=== PATIENT | female | born 1945 | race African-American/Black ===

== ENCOUNTER 2021-01-31 18:10 | Inpatient (IN) ==
[2021-01-31 18:48] LABS: Basophils % 0.2 % (0.0-0.8); Eosinophils # 0.4 10*3/uL (0.0-0.87); Eosinophils % 2.1 % (0.00-10.9); Hematocrit 37.7 VOL% (35.7-47.0); Hemoglobin 11.9 GM/DL (12.0-16.0); Immature Granulocytes % 0.4 %; Immature Granulocytes Absolute 0.06 #; Lymphocytes # 3.3 10*3/uL (1.4-4.0); Lymphocytes % 19.4 % (21.3-54.2); Mean Corpuscular HGB Conc 31.6 GM/DL (32-36); Mean Corpuscular Volume 88.9 FL (87-102); Mean Platelet Volume 10.8 FL (9.6-12.0); Monocytes % 7.5 % (1.7-12.7); Neutrophils % 70.4 % (38.7-73.9); Platelet Count 170 T/CUMM (130-400); Red Blood Count 4.24 MC/CUMM (3.8-5.5); Red Cell Distribution Width 17.6 % (9.3-17.3); White Blood Count 16.8 T/CUMM (4-12)
[2021-01-31 19:04] LABS: Albumin 3.3 G/DL (3.4-5.0); Bilirubin,Total 0.4 MG/DL (0.2-1.0); Calcium 8.9 MG/DL (8.5-10.1); Osmolality,Calculated 282.3 MOS/KG (273-304); Potassium 4.5 MMOL/L (3.5-5.1)
[2021-01-31] MEDS ORDERED: ASPIRIN 325 MG TABLET PO STA (19:55)
[2021-01-31] MEDS ORDERED: ACETAMINOPHEN 325 MG TABLET PO ONE (19:55)
[2021-01-31 20:11] LABS: Bacteria,Urine Occasional /HPF (Few); Bilirubin,Urine Negative (Negative); Blood, Urine Negative (Negative); Glucose,Urine (UA) 150 mg/dL (Negative); Hyaline Casts,Urine 1 /LPF (0-3); Ketones,Urine Negative (Negative); Nitrite,Urine Negative (Negative); Protein,Urine Negative; Squamous Epithelial Cell,Urine Occasional /HPF (0-10); Urine Appearance CLEAR (Clear); Urine Color Yellow (Yellow); Urine Urobilinogen < 2.0 EU/DL (0.2-1.0)
[2021-01-31] MEDS ORDERED: PIPERACILLIN/TAZOBACTAM 3,375 MG in SODIUM CHLORIDE 0.9% 100 ML IV STA (20:42)
[2021-01-31] MEDS ORDERED: VANCOMYCIN INJ 1,000 MG in SODIUM CHLORIDE 0.9% 250 ML IV STA (20:42)
[2021-01-31] MEDS ORDERED: hydrALAZINE 20 MG/1 ML VIAL IV PRN (21:15)
[2021-01-31] MEDS ORDERED: ONDANSETRON 4 MG/2 ML VIAL IV PRN (21:15)
[2021-01-31] MEDS ORDERED: diphenhydrAMINE CAP 25 MG CAPSULE PO PRN (21:15)
[2021-01-31] MEDS ORDERED: GLUCAGON 1 MG VIAL IM PRN ×2 (21:15)
[2021-01-31] MEDS ORDERED: ZALEPLON 5 MG CAPSULE PO PRN (21:15)
[2021-01-31] MEDS ORDERED: DOCUSATE SODIUM 100 MG CAPSULE PO PRN (21:15)
[2021-01-31] MEDS ORDERED: guaiFENesin/DM ER 600-30 MG TABLET PO PRN (21:15)
[2021-01-31] MEDS ORDERED: NICOTINE 21 MG/24 HR PATCH TRANSDERM PRN (21:15)
[2021-01-31] MEDS ORDERED: MORPHINE 4 MG/1 ML VIAL IV PRN (21:15)
[2021-01-31] MEDS ORDERED: DEXTROSE 50% 25 GM/50 ML VIAL IV PRN (21:15)
[2021-01-31] MEDS: SODIUM CHLORIDE 0.9% 1,000 ML IV SCH (23:49)
[2021-02-01] MEDS: ALBUTEROL/IPRATROPIUM 3 ML NEB RESP TX SCH ×4 (02:00→18:56)
[2021-02-01] MEDS: ACETAMINOPHEN 325 MG TABLET PO PRN ×3 (03:26→20:13)
[2021-02-01 05:18] LABS: Basophils % 0.2 % (0.0-0.8); Eosinophils # 0.2 10*3/uL (0.0-0.87); Eosinophils % 1.5 % (0.00-10.9); Hematocrit 31.8 VOL% (35.7-47.0); Hemoglobin 10.3 GM/DL (12.0-16.0); Immature Granulocytes % 0.5 %; Immature Granulocytes Absolute 0.05 #; Lymphocytes # 1.7 10*3/uL (1.4-4.0); Lymphocytes % 15.8 % (21.3-54.2); Mean Corpuscular HGB Conc 32.4 GM/DL (32-36); Mean Corpuscular Volume 88.3 FL (87-102); Monocytes % 7.8 % (1.7-12.7); Neutrophils % 74.2 % (38.7-73.9); Platelet Count 144 T/CUMM (130-400); Red Cell Distribution Width 17.6 % (9.3-17.3); White Blood Count 10.8 T/CUMM (4-12)
[2021-02-01 05:35] LABS: Calcium 8.5 MG/DL (8.5-10.1); Potassium 3.9 MMOL/L (3.5-5.1)
[2021-02-01] MEDS: DEXTROSE 50% 25 GM/50 ML VIAL IV PRN (05:58)
[2021-02-01] MEDS ORDERED: MAGNESIUM SULF RIDER 2 GM/50 ML PREMIX IV PRN (07:20)
[2021-02-01] MEDS ORDERED: MAGNESIUM SULF RIDER 4 GM/100 ML PREMIX IV PRN (07:20)
[2021-02-01] MEDS ORDERED: PANTOPRAZOLE 40 MG TABLET PO SCH (09:00)
[2021-02-01] MEDS: INSULIN LISPRO 100 UNIT/ML SUBCUT SCH ×4 (09:01→20:14)
[2021-02-01] MEDS: ATORVASTATIN 80 MG TABLET PO SCH (10:00)
[2021-02-01] MEDS: busPIRone 5 MG TABLET PO SCH ×2 (10:00→20:13)
[2021-02-01] MEDS: NEBIVOLOL 10 MG TABLET PO SCH (10:00)
[2021-02-01] MEDS: CETIRIZINE 10 MG TABLET PO SCH (10:00)
[2021-02-01] MEDS: ENOXAPARIN 40 MG/0.4 ML SYRINGE SUBCUT SCH (10:08)
[2021-02-01] MEDS: PIPERACILLIN/TAZOBACTAM 3,375 MG in SODIUM CHLORIDE 0.9% 100 ML IV SCH ×2 (10:08→17:17)
[2021-02-01] MEDS: SODIUM CHLORIDE 0.9% 1,000 ML IV SCH (16:46)
[2021-02-01] MEDS: FAMOTIDINE 20 MG TABLET PO SCH (20:13)
[2021-02-01] MEDS: TAMSULOSIN 0.4 MG CAPSULE PO SCH (20:13)
[2021-02-01] MEDS ORDERED: INSULIN GLARGINE 100 UNIT/ML SUBCUT SCH (21:00)
[2021-02-02] MEDS: PIPERACILLIN/TAZOBACTAM 3,375 MG in SODIUM CHLORIDE 0.9% 100 ML IV SCH ×3 (00:03→16:20)
[2021-02-02] MEDS: ALBUTEROL/IPRATROPIUM 3 ML NEB RESP TX SCH ×4 (00:53→19:07)
[2021-02-02 04:52] LABS: Basophils % 0.4 % (0.0-0.8); Eosinophils # 0.2 10*3/uL (0.0-0.87); Eosinophils % 2.6 % (0.00-10.9); Hematocrit 31.2 VOL% (35.7-47.0); Hemoglobin 9.9 GM/DL (12.0-16.0); Immature Granulocytes % 0.3 %; Immature Granulocytes Absolute 0.02 #; Lymphocytes # 1.9 10*3/uL (1.4-4.0); Lymphocytes % 23.8 % (21.3-54.2); Mean Corpuscular HGB Conc 31.7 GM/DL (32-36); Mean Corpuscular Volume 89.1 FL (87-102); Mean Platelet Volume 11.6 FL (9.6-12.0); Monocytes % 9.7 % (1.7-12.7); Neutrophils % 63.2 % (38.7-73.9); Platelet Count 134 T/CUMM (130-400); Red Cell Distribution Width 17.8 % (9.3-17.3); White Blood Count 7.9 T/CUMM (4-12)
[2021-02-02 05:07] LABS: Calcium 8.5 MG/DL (8.5-10.1); Osmolality,Calculated 287.7 MOS/KG (273-304); Potassium 4.6 MMOL/L (3.5-5.1)
[2021-02-02 05:09] LABS: Hypochromasia 1+; Microcytosis 1+; Platelet Estimate Normal
[2021-02-02] MEDS: ENOXAPARIN 40 MG/0.4 ML SYRINGE SUBCUT SCH (08:32)
[2021-02-02] MEDS: NEBIVOLOL 10 MG TABLET PO SCH (08:32)
[2021-02-02] MEDS: CETIRIZINE 10 MG TABLET PO SCH (08:33)
[2021-02-02] MEDS: busPIRone 5 MG TABLET PO SCH ×2 (08:33→21:34)
[2021-02-02] MEDS: INSULIN LISPRO 100 UNIT/ML SUBCUT SCH ×4 (08:33→21:37)
[2021-02-02] MEDS: FAMOTIDINE 20 MG TABLET PO SCH ×2 (08:33→21:34)
[2021-02-02] MEDS: ATORVASTATIN 80 MG TABLET PO SCH (08:33)
[2021-02-02 10:45] LABS: % Iron Saturation 10.6 % (18-50)
[2021-02-02 16:17] LABS: Folate 12.72 NG/ML (5.38-24.0)
[2021-02-02] MEDS: TAMSULOSIN 0.4 MG CAPSULE PO SCH (21:34)
[2021-02-03] MEDS: ALBUTEROL/IPRATROPIUM 3 ML NEB RESP TX SCH ×4 (00:41→19:36)
[2021-02-03] MEDS: PIPERACILLIN/TAZOBACTAM 3,375 MG in SODIUM CHLORIDE 0.9% 100 ML IV SCH ×3 (01:15→17:11)
[2021-02-03 04:42] LABS: Basophils % 0.3 % (0.0-0.8); Eosinophils # 0.2 10*3/uL (0.0-0.87); Eosinophils % 3.8 % (0.00-10.9); Hematocrit 28.3 VOL% (35.7-47.0); Hemoglobin 9.2 GM/DL (12.0-16.0); Immature Granulocytes % 0.5 %; Immature Granulocytes Absolute 0.03 #; Lymphocytes # 1.8 10*3/uL (1.4-4.0); Lymphocytes % 29.4 % (21.3-54.2); Mean Corpuscular HGB Conc 32.5 GM/DL (32-36); Mean Corpuscular Volume 87.1 FL (87-102); Mean Platelet Volume 10.9 FL (9.6-12.0); Monocytes % 11.6 % (1.7-12.7); Neutrophils % 54.4 % (38.7-73.9); Platelet Count 121 T/CUMM (130-400); Red Blood Count 3.25 MC/CUMM (3.8-5.5); Red Cell Distribution Width 17.6 % (9.3-17.3); White Blood Count 6.1 T/CUMM (4-12)
[2021-02-03 04:49] LABS: PT Patient Result 10.8 SECS (10.5-12.0); Partial Thromboplastin Time 28.3 SECS (23.9-33.8)
[2021-02-03] MEDS ORDERED: BENZONATATE 100 MG CAPSULE PO ONE (08:30)
[2021-02-03] MEDS ORDERED: diphenhydrAMINE 50 MG/1 ML VIAL IM ONE (08:30)
[2021-02-03] MEDS: INSULIN LISPRO 100 UNIT/ML SUBCUT SCH ×4 (08:59→22:38)
[2021-02-03] MEDS ORDERED: LIDOCAINE 2% 20 ML VIAL RESP TX ONE (09:00)
[2021-02-03] MEDS ORDERED: LIDOCAINE 1% 20 ML VIAL MISC INJ ONE (09:00)
[2021-02-03] MEDS ORDERED: LIDOCAINE 2% VISCOUS 100 ML BOTTLE SWISH/SPIT ONE (09:00)
[2021-02-03] MEDS: busPIRone 5 MG TABLET PO SCH ×2 (09:01→21:38)
[2021-02-03] MEDS: FAMOTIDINE 20 MG TABLET PO SCH ×2 (09:01→21:38)
[2021-02-03] MEDS: CETIRIZINE 10 MG TABLET PO SCH (09:01)
[2021-02-03] MEDS: ATORVASTATIN 80 MG TABLET PO SCH (09:01)
[2021-02-03] MEDS: NEBIVOLOL 10 MG TABLET PO SCH (09:20)
[2021-02-03] MEDS: DEXTROSE 50% 25 GM/50 ML VIAL IV PRN (19:23)
[2021-02-03] MEDS: FERROUS SULFATE 325 MG TABLET PO SCH (21:38)
[2021-02-03] MEDS: TAMSULOSIN 0.4 MG CAPSULE PO SCH (21:38)
[2021-02-04] MEDS: ALBUTEROL/IPRATROPIUM 3 ML NEB RESP TX SCH ×3 (00:24→13:45)
[2021-02-04] MEDS: PIPERACILLIN/TAZOBACTAM 3,375 MG in SODIUM CHLORIDE 0.9% 100 ML IV SCH ×2 (00:38→10:26)
[2021-02-04 04:40] LABS: Basophils % 0.4 % (0.0-0.8); Eosinophils # 0.2 10*3/uL (0.0-0.87); Eosinophils % 4.2 % (0.00-10.9); Hematocrit 27.5 VOL% (35.7-47.0); Hemoglobin 9.1 GM/DL (12.0-16.0); Immature Granulocytes % 0.4 %; Immature Granulocytes Absolute 0.02 #; Lymphocytes # 1.7 10*3/uL (1.4-4.0); Lymphocytes % 31.7 % (21.3-54.2); Mean Corpuscular HGB Conc 33.1 GM/DL (32-36); Mean Platelet Volume 10.3 FL (9.6-12.0); Monocytes % 12.5 % (1.7-12.7); Neutrophils % 50.8 % (38.7-73.9); Platelet Count 121 T/CUMM (130-400); Red Blood Count 3.16 MC/CUMM (3.8-5.5); Red Cell Distribution Width 17.5 % (9.3-17.3); White Blood Count 5.3 T/CUMM (4-12)
[2021-02-04 05:07] LABS: Calcium 8.5 MG/DL (8.5-10.1); Potassium 4.3 MMOL/L (3.5-5.1)
[2021-02-04] MEDS: INSULIN LISPRO 100 UNIT/ML SUBCUT SCH ×2 (08:47→14:26)
[2021-02-04] MEDS: ENOXAPARIN 40 MG/0.4 ML SYRINGE SUBCUT SCH (10:27)
[2021-02-04] MEDS: busPIRone 5 MG TABLET PO SCH (10:28)
[2021-02-04] MEDS: FAMOTIDINE 20 MG TABLET PO SCH (10:30)
[2021-02-04] MEDS: NEBIVOLOL 10 MG TABLET PO SCH (10:30)
[2021-02-04] MEDS: CETIRIZINE 10 MG TABLET PO SCH (10:30)
[2021-02-04] MEDS: FERROUS SULFATE 325 MG TABLET PO SCH (10:30)
[2021-02-04] MEDS: ATORVASTATIN 80 MG TABLET PO SCH (10:30)
[2021-02-04 12:34] VITALS: BP 150/73
== END 2021-02-04 15:20 | disposition home or self-care (01) | DRG 178 ==
LOC: N.ED 18:10 → N.EDINP 18:10 → SUATTDRO 21:15 → N.TELEN 21:44
PROVIDERS: ADMIT Internal Medicine; ATTEND Internal Medicine

== ENCOUNTER 2021-02-17 10:29 | Inpatient (IN) ==
[2021-02-17 12:47] LABS: Basophils % 0.4 % (0.0-0.8); Eosinophils # 0.1 10*3/uL (0.0-0.87); Eosinophils % 1.1 % (0.00-10.9); Hematocrit 35.5 VOL% (35.7-47.0); Hemoglobin 11.6 GM/DL (12.0-16.0); Immature Granulocytes % 0.4 %; Immature Granulocytes Absolute 0.04 #; Lymphocytes # 1.2 10*3/uL (1.4-4.0); Lymphocytes % 10.8 % (21.3-54.2); Mean Corpuscular HGB Conc 32.7 GM/DL (32-36); Mean Corpuscular Volume 88.1 FL (87-102); Mean Platelet Volume 10.9 FL (9.6-12.0); Monocytes % 11.1 % (1.7-12.7); Neutrophils % 76.2 % (38.7-73.9); Platelet Count 247 T/CUMM (130-400); Red Blood Count 4.03 MC/CUMM (3.8-5.5); White Blood Count 11.3 T/CUMM (4-12)
[2021-02-17 13:09] LABS: Albumin 3.2 G/DL (3.4-5.0); Bilirubin,Total 0.5 MG/DL (0.20-1.00); Calcium 9.6 MG/DL (8.5-10.1); Osmolality,Calculated 285.3 MOS/KG (273-304); Potassium 4.7 MMOL/L (3.5-5.1); Total Protein 7.6 G/DL (6.4-8.2)
[2021-02-17] MEDS ORDERED: AZITHROMYCIN 250 MG TABLET PO STA (15:12)
[2021-02-17] MEDS ORDERED: cefTRIAXone 1,000 MG in SODIUM CHLORIDE 0.9% 100 ML IV STA (15:12)
[2021-02-17] MEDS ORDERED: GLUCAGON 1 MG VIAL IM PRN (15:34)
[2021-02-17] MEDS ORDERED: DEXTROSE 50% 25 GM/50 ML VIAL IV PRN ×2 (15:34)
[2021-02-17] MEDS ORDERED: ZALEPLON 5 MG CAPSULE PO PRN (15:34)
[2021-02-17] MEDS ORDERED: ALBUTEROL/IPRATROPIUM 3 ML NEB RESP TX PRN (15:38)
[2021-02-17] MEDS ORDERED: MELATONIN 3 MG TABLET PO PRN (16:08)
[2021-02-17] MEDS ORDERED: MIRTAZAPINE 15 MG TABLET PO PRN (16:08)
[2021-02-17] MEDS: ENOXAPARIN 40 MG/0.4 ML SYRINGE SUBCUT SCH (16:41)
[2021-02-17] MEDS: INSULIN REGULAR 100 UNIT/ML SUBCUT SCH ×2 (17:23→21:27)
[2021-02-17] MEDS: ACETAMINOPHEN 325 MG TABLET PO PRN (18:25)
[2021-02-17] MEDS: PIPERACILLIN/TAZOBACTAM 3,375 MG in SODIUM CHLORIDE 0.9% 100 ML IV SCH (20:09)
[2021-02-17] MEDS: CETIRIZINE 10 MG TABLET PO SCH (20:11)
[2021-02-17] MEDS: FERROUS SULFATE 325 MG TABLET PO SCH (20:11)
[2021-02-17] MEDS: busPIRone 5 MG TABLET PO SCH (20:11)
[2021-02-17] MEDS ORDERED: ESOMEPRAZOLE 40 MG PO SCH (21:00)
[2021-02-18 02:13] LABS: Basophils % 0.2 % (0.0-0.8); Eosinophils # 0.2 10*3/uL (0.0-0.87); Eosinophils % 1.9 % (0.00-10.9); Hematocrit 32.1 VOL% (35.7-47.0); Hemoglobin 10.6 GM/DL (12.0-16.0); Immature Granulocytes % 0.3 %; Immature Granulocytes Absolute 0.04 #; Lymphocytes # 2.8 10*3/uL (1.4-4.0); Lymphocytes % 22.6 % (21.3-54.2); Mean Corpuscular Volume 86.5 FL (87-102); Mean Platelet Volume 10.7 FL (9.6-12.0); Monocytes % 9.1 % (1.7-12.7); Neutrophils % 65.9 % (38.7-73.9); Platelet Count 215 T/CUMM (130-400); Red Blood Count 3.71 MC/CUMM (3.8-5.5); White Blood Count 12.3 T/CUMM (4-12)
[2021-02-18 02:33] LABS: Albumin 2.6 G/DL (3.4-5.0); Bilirubin,Total 0.8 MG/DL (0.20-1.00); Calcium 9.5 MG/DL (8.5-10.1); Osmolality,Calculated 282.3 MOS/KG (273-304); Potassium 4.1 MMOL/L (3.5-5.1); Total Protein 6.7 G/DL (6.4-8.2)
[2021-02-18] MEDS: PIPERACILLIN/TAZOBACTAM 3,375 MG in SODIUM CHLORIDE 0.9% 100 ML IV SCH ×3 (04:15→20:51)
[2021-02-18] MEDS: ONDANSETRON 4 MG/2 ML VIAL IV PRN (06:00)
[2021-02-18] MEDS: INSULIN REGULAR 100 UNIT/ML SUBCUT SCH ×4 (08:11→20:40)
[2021-02-18] MEDS: ATORVASTATIN 80 MG TABLET PO SCH (08:44)
[2021-02-18] MEDS: ESCITALOPRAM 10 MG TABLET PO SCH (08:44)
[2021-02-18] MEDS: busPIRone 5 MG TABLET PO SCH ×2 (08:44→20:56)
[2021-02-18] MEDS: methylPREDNISolone 4 MG TABLET PO SCH (08:44)
[2021-02-18] MEDS: FERROUS SULFATE 325 MG TABLET PO SCH ×2 (08:45→20:56)
[2021-02-18] MEDS: amLODIPine 10 MG TABLET PO SCH (08:45)
[2021-02-18] MEDS: NEBIVOLOL 10 MG TABLET PO SCH (08:45)
[2021-02-18] MEDS: PANTOPRAZOLE 40 MG TABLET PO SCH (08:45)
[2021-02-18] MEDS ORDERED: LIDOCAINE 1% 20 ML VIAL MISC INJ ONE (08:58)
[2021-02-18] MEDS ORDERED: diphenhydrAMINE 50 MG/1 ML VIAL IM ONE (08:58)
[2021-02-18] MEDS ORDERED: LIDOCAINE 2% VISCOUS 100 ML BOTTLE SWISH/SPIT ONE (08:58)
[2021-02-18] MEDS ORDERED: LIDOCAINE 2% 20 ML VIAL RESP TX ONE (08:58)
[2021-02-18] MEDS ORDERED: LEVOFLOXACIN 250 MG TABLET PO SCH (09:00)
[2021-02-18] MEDS ORDERED: BENZONATATE 100 MG CAPSULE PO ONE (09:01)
[2021-02-18] MEDS: ENOXAPARIN 40 MG/0.4 ML SYRINGE SUBCUT SCH (15:59)
[2021-02-18] MEDS ORDERED: cefTRIAXone 1,000 MG in SODIUM CHLORIDE 0.9% 100 ML IV SCH (16:00)
[2021-02-18] MEDS ORDERED: AZITHROMYCIN 250 MG TABLET PO SCH (16:00)
[2021-02-18] MEDS: ACETAMINOPHEN 325 MG TABLET PO PRN (20:56)
[2021-02-18] MEDS: CETIRIZINE 10 MG TABLET PO SCH (20:56)
[2021-02-19] MEDS: PIPERACILLIN/TAZOBACTAM 3,375 MG in SODIUM CHLORIDE 0.9% 100 ML IV SCH ×3 (04:32→22:45)
[2021-02-19] MEDS: INSULIN REGULAR 100 UNIT/ML SUBCUT SCH ×4 (08:12→22:47)
[2021-02-19] MEDS: FERROUS SULFATE 325 MG TABLET PO SCH ×3 (08:20→22:51)
[2021-02-19] MEDS: NEBIVOLOL 10 MG TABLET PO SCH ×2 (08:20→08:46)
[2021-02-19] MEDS: PANTOPRAZOLE 40 MG TABLET PO SCH ×2 (08:20→08:47)
[2021-02-19] MEDS: amLODIPine 10 MG TABLET PO SCH ×2 (08:21→08:47)
[2021-02-19] MEDS: busPIRone 5 MG TABLET PO SCH ×3 (08:21→22:51)
[2021-02-19] MEDS: ATORVASTATIN 80 MG TABLET PO SCH ×2 (08:21→08:47)
[2021-02-19] MEDS: ESCITALOPRAM 10 MG TABLET PO SCH ×2 (08:21→08:46)
[2021-02-19] MEDS: ONDANSETRON 4 MG/2 ML VIAL IV PRN (08:49)
[2021-02-19] MEDS: ACETAMINOPHEN 325 MG TABLET PO PRN (08:49)
[2021-02-19 09:50] LABS: Basophils % 0.5 % (0.0-0.8); Eosinophils # 0.4 10*3/uL (0.0-0.87); Eosinophils % 4.7 % (0.00-10.9); Hemoglobin 9.4 GM/DL (12.0-16.0); Immature Granulocytes % 0.4 %; Immature Granulocytes Absolute 0.03 #; Lymphocytes # 1.8 10*3/uL (1.4-4.0); Lymphocytes % 22.1 % (21.3-54.2); Mean Corpuscular HGB Conc 32.4 GM/DL (32-36); Mean Corpuscular Volume 88.4 FL (87-102); Mean Platelet Volume 10.5 FL (9.6-12.0); Monocytes % 9.2 % (1.7-12.7); Neutrophils % 63.1 % (38.7-73.9); Platelet Count 167 T/CUMM (130-400); Red Blood Count 3.28 MC/CUMM (3.8-5.5); Red Cell Distribution Width 18.2 % (9.3-17.3); White Blood Count 8.2 T/CUMM (4-12)
[2021-02-19 10:09] LABS: Calcium 8.7 MG/DL (8.5-10.1); Osmolality,Calculated 292.8 MOS/KG (273-304)
[2021-02-19] MEDS: ENOXAPARIN 40 MG/0.4 ML SYRINGE SUBCUT SCH (22:49)
[2021-02-19] MEDS: CETIRIZINE 10 MG TABLET PO SCH (22:51)
[2021-02-20] MEDS: PIPERACILLIN/TAZOBACTAM 3,375 MG in SODIUM CHLORIDE 0.9% 100 ML IV SCH (05:29)
[2021-02-20 06:10] LABS: Basophils % 0.4 % (0.0-0.8); Eosinophils # 0.5 10*3/uL (0.0-0.87); Eosinophils % 7.7 % (0.00-10.9); Hematocrit 29.4 VOL% (35.7-47.0); Hemoglobin 9.4 GM/DL (12.0-16.0); Immature Granulocytes % 0.4 %; Immature Granulocytes Absolute 0.03 #; Lymphocytes % 29.3 % (21.3-54.2); Mean Corpuscular Volume 89.1 FL (87-102); Mean Platelet Volume 11.2 FL (9.6-12.0); Monocytes % 12.3 % (1.7-12.7); Neutrophils % 49.9 % (38.7-73.9); Platelet Count 179 T/CUMM (130-400); Red Cell Distribution Width 17.9 % (9.3-17.3); White Blood Count 6.9 T/CUMM (4-12)
[2021-02-20 06:38] LABS: Calcium 8.4 MG/DL (8.5-10.1); Osmolality,Calculated 288.7 MOS/KG (273-304); Potassium 3.8 MMOL/L (3.5-5.1)
[2021-02-20] MEDS: FERROUS SULFATE 325 MG TABLET PO SCH (09:46)
[2021-02-20] MEDS: ATORVASTATIN 80 MG TABLET PO SCH (09:46)
[2021-02-20] MEDS: NEBIVOLOL 10 MG TABLET PO SCH (09:46)
[2021-02-20] MEDS: amLODIPine 10 MG TABLET PO SCH (09:46)
[2021-02-20] MEDS: ESCITALOPRAM 10 MG TABLET PO SCH (09:46)
[2021-02-20] MEDS: INSULIN REGULAR 100 UNIT/ML SUBCUT SCH ×2 (09:46→12:38)
[2021-02-20] MEDS: PANTOPRAZOLE 40 MG TABLET PO SCH (09:46)
[2021-02-20] MEDS: busPIRone 5 MG TABLET PO SCH (09:47)
[2021-02-20] MEDS: methylPREDNISolone 4 MG TABLET PO SCH (09:47)
[2021-02-20 11:42] VITALS: BP 119/64
== END 2021-02-20 14:32 | disposition home health service (06) | DRG 178 ==
LOC: N.ED 10:29 → SUATTDRO 15:34 → N.EDINP 16:22 → N.5E 16:34
PROVIDERS: ADMIT Internal Medicine; ATTEND Internal Medicine

== ENCOUNTER 2021-06-02 15:12 | Inpatient (IN) ==
[2021-06-02 17:33] LABS: Bacteria,Urine Many /HPF (Few); Bilirubin,Urine Negative (Negative); Blood, Urine Large mg/dL (Negative); Glucose,Urine (UA) 50 mg/dL (Negative); Ketones,Urine Negative (Negative); Nitrite,Urine Negative (Negative); Protein,Urine 100 MG/DL; RBC,Urine 33844 /HPF (0-4); Urine Color Red (Yellow); Urine Specific Gravity 1.014 (1.001-1.035); Urine Urobilinogen < 2.0 EU/DL (0.2-1.0)
[2021-06-02 17:38] LABS: Urine Appearance Turbid (Clear)
[2021-06-02] MEDS ORDERED: cefTRIAXone 1,000 MG in SODIUM CHLORIDE 0.9% 100 ML IV STA (17:40)
[2021-06-02 17:41] LABS: Basophils % 0.2 % (0.0-0.8); Eosinophils % 0.2 % (0.00-10.9); Hematocrit 33.5 VOL% (35.7-47.0); Hemoglobin 10.8 GM/DL (12.0-16.0); Immature Granulocytes % 0.5 %; Immature Granulocytes Absolute 0.05 #; Lymphocytes # 2.2 10*3/uL (1.4-4.0); Lymphocytes % 24.2 % (21.3-54.2); Mean Corpuscular HGB Conc 32.2 GM/DL (32-36); Mean Corpuscular Volume 87.7 FL (87-102); Monocytes % 5.9 % (1.7-12.7); Platelet Count 193 T/CUMM (130-400); Red Blood Count 3.82 MC/CUMM (3.8-5.5); Red Cell Distribution Width 15.7 % (9.3-17.3); White Blood Count 9.1 T/CUMM (4-12)
[2021-06-02 18:01] LABS: Albumin 2.6 G/DL (3.4-5.0); Bilirubin,Total 0.6 MG/DL (0.20-1.00); Calcium 9.1 MG/DL (8.5-10.1); Osmolality,Calculated 298.7 MOS/KG (273-304); Potassium 5.9 MMOL/L (3.5-5.1); Total Protein 7.5 G/DL (6.4-8.2)
[2021-06-02] MEDS ORDERED: SODIUM CHLORIDE 0.9% 1,000 ML IV STA (18:59)
[2021-06-02] MEDS ORDERED: GLUCAGON 1 MG VIAL IM PRN (19:36)
[2021-06-02] MEDS ORDERED: CALCIUM CARBONATE CHEW 500 MG TABLET PO PRN (19:36)
[2021-06-02] MEDS ORDERED: DEXTROSE 50% 25 GM/50 ML VIAL IV PRN (19:36)
[2021-06-02] MEDS ORDERED: guaiFENesin/DM ER 600-30 MG TABLET PO PRN (19:36)
[2021-06-02] MEDS ORDERED: ONDANSETRON 4 MG/2 ML VIAL IV PRN (19:36)
[2021-06-02] MEDS ORDERED: busPIRone 10 MG TABLET PO PRN (20:02)
[2021-06-02] MEDS ORDERED: MORPHINE 2 MG/1 ML SYRINGE IV STA (20:06)
[2021-06-02] MEDS ORDERED: ONDANSETRON 4 MG/2 ML VIAL IV STA (20:06)
[2021-06-02] MEDS: INSULIN REGULAR 100 UNIT/ML SUBCUT SCH (23:06)
[2021-06-02] MEDS: SODIUM CHLORIDE 0.9% 1,000 ML IV SCH (23:20)
[2021-06-02] MEDS: ESCITALOPRAM 10 MG TABLET PO SCH (23:20)
[2021-06-02] MEDS: busPIRone 10 MG TABLET PO SCH (23:20)
[2021-06-02] MEDS: PANTOPRAZOLE 40 MG TABLET PO SCH (23:21)
[2021-06-02] MEDS: CETIRIZINE 10 MG TABLET PO SCH (23:21)
[2021-06-03 05:55] LABS: Basophils % 0.6 % (0.0-0.8); Eosinophils # 0.2 10*3/uL (0.0-0.87); Eosinophils % 3.3 % (0.00-10.9); Hematocrit 28.9 VOL% (35.7-47.0); Hemoglobin 9.2 GM/DL (12.0-16.0); Immature Granulocytes % 0.6 %; Immature Granulocytes Absolute 0.04 #; Lymphocytes # 2.1 10*3/uL (1.4-4.0); Lymphocytes % 33.5 % (21.3-54.2); Mean Corpuscular HGB Conc 31.8 GM/DL (32-36); Mean Corpuscular Volume 90.9 FL (87-102); Mean Platelet Volume 10.8 FL (9.6-12.0); Monocytes % 12.3 % (1.7-12.7); Neutrophils % 49.7 % (38.7-73.9); Platelet Count 178 T/CUMM (130-400); Red Blood Count 3.18 MC/CUMM (3.8-5.5); Red Cell Distribution Width 15.5 % (9.3-17.3); White Blood Count 6.4 T/CUMM (4-12)
[2021-06-03 06:19] LABS: Calcium 8.6 MG/DL (8.5-10.1); Osmolality,Calculated 304.1 MOS/KG (273-304)
[2021-06-03] MEDS: SODIUM CHLORIDE 0.9% 1,000 ML IV SCH ×4 (07:34→21:47)
[2021-06-03] MEDS: PANTOPRAZOLE 40 MG TABLET PO SCH ×2 (08:19→22:06)
[2021-06-03] MEDS: INSULIN REGULAR 100 UNIT/ML SUBCUT SCH ×4 (08:19→22:06)
[2021-06-03] MEDS: busPIRone 10 MG TABLET PO SCH ×2 (08:19→22:05)
[2021-06-03] MEDS: ACETAMINOPHEN 325 MG TABLET PO PRN (19:01)
[2021-06-03] MEDS: ESCITALOPRAM 10 MG TABLET PO SCH (22:05)
[2021-06-03] MEDS: CETIRIZINE 10 MG TABLET PO SCH (22:06)
[2021-06-03] MEDS: ATORVASTATIN 80 MG TABLET PO SCH (22:06)
[2021-06-04 04:50] LABS: Basophils # 0.1 10*3/uL (0.0-0.2); Basophils % 0.9 % (0.0-0.8); Eosinophils # 0.3 10*3/uL (0.0-0.87); Eosinophils % 4.5 % (0.00-10.9); Hematocrit 25.9 VOL% (35.7-47.0); Hemoglobin 8.3 GM/DL (12.0-16.0); Immature Granulocytes % 1.2 %; Immature Granulocytes Absolute 0.08 #; Lymphocytes # 2.3 10*3/uL (1.4-4.0); Lymphocytes % 35.2 % (21.3-54.2); Mean Corpuscular Volume 88.7 FL (87-102); Mean Platelet Volume 10.3 FL (9.6-12.0); Monocytes % 14.4 % (1.7-12.7); Neutrophils % 43.8 % (38.7-73.9); Platelet Count 154 T/CUMM (130-400); Red Blood Count 2.92 MC/CUMM (3.8-5.5); Red Cell Distribution Width 15.8 % (9.3-17.3); White Blood Count 6.4 T/CUMM (4-12)
[2021-06-04 05:08] LABS: Calcium 8.1 MG/DL (8.5-10.1); Osmolality,Calculated 299.8 MOS/KG (273-304); Potassium 4.9 MMOL/L (3.5-5.1)
[2021-06-04] MEDS: ACETAMINOPHEN 325 MG TABLET PO PRN ×2 (05:10→15:53)
[2021-06-04] MEDS: SODIUM CHLORIDE 0.9% 1,000 ML IV SCH ×3 (07:23→15:27)
[2021-06-04] MEDS ORDERED: MAGNESIUM SULF RIDER 2 GM/50 ML PREMIX IV PRN (07:24)
[2021-06-04] MEDS ORDERED: MAGNESIUM SULF RIDER 4 GM/100 ML PREMIX IV PRN (07:24)
[2021-06-04] MEDS: INSULIN REGULAR 100 UNIT/ML SUBCUT SCH ×4 (07:52→21:33)
[2021-06-04] MEDS: busPIRone 10 MG TABLET PO SCH ×3 (07:52→21:32)
[2021-06-04] MEDS: PANTOPRAZOLE 40 MG TABLET PO SCH ×3 (07:53→21:32)
[2021-06-04] MEDS: ATORVASTATIN 80 MG TABLET PO SCH (21:32)
[2021-06-04] MEDS: ESCITALOPRAM 10 MG TABLET PO SCH (21:32)
[2021-06-04] MEDS: CETIRIZINE 10 MG TABLET PO SCH (21:33)
[2021-06-05] MEDS: SODIUM CHLORIDE 0.9% 1,000 ML IV SCH ×2 (04:48→11:04)
[2021-06-05] MEDS: ACETAMINOPHEN 325 MG TABLET PO PRN (05:50)
[2021-06-05 06:11] LABS: Basophils # 0.1 10*3/uL (0.0-0.2); Basophils % 0.7 % (0.0-0.8); Eosinophils # 0.4 10*3/uL (0.0-0.87); Eosinophils % 5.2 % (0.00-10.9); Hematocrit 25.1 VOL% (35.7-47.0); Immature Granulocytes % 1.3 %; Immature Granulocytes Absolute 0.09 #; Lymphocytes # 2.4 10*3/uL (1.4-4.0); Lymphocytes % 34.9 % (21.3-54.2); Mean Corpuscular HGB Conc 31.9 GM/DL (32-36); Mean Corpuscular Volume 88.4 FL (87-102); Mean Platelet Volume 10.4 FL (9.6-12.0); Monocytes % 14.9 % (1.7-12.7); Platelet Count 150 T/CUMM (130-400); Red Blood Count 2.84 MC/CUMM (3.8-5.5); Red Cell Distribution Width 15.8 % (9.3-17.3); White Blood Count 6.8 T/CUMM (4-12)
[2021-06-05 06:40] LABS: Calcium 8.2 MG/DL (8.5-10.1); Osmolality,Calculated 288.8 MOS/KG (273-304); Potassium 4.6 MMOL/L (3.5-5.1)
[2021-06-05] MEDS: PANTOPRAZOLE 40 MG TABLET PO SCH (09:03)
[2021-06-05] MEDS: busPIRone 10 MG TABLET PO SCH (09:03)
[2021-06-05] MEDS: INSULIN REGULAR 100 UNIT/ML SUBCUT SCH ×3 (10:10→16:31)
[2021-06-05 16:41] VITALS: BP 133/67
== END 2021-06-05 17:49 | disposition home health service (06) | DRG 690 ==
LOC: N.ED 15:12 → N.EDINP 19:36 → N.3E 22:22
PROVIDERS: ADMIT Internal Medicine; ATTEND Internal Medicine

== ENCOUNTER 2022-06-20 06:59 | Inpatient (IN) ==
[2022-06-20] MEDS ORDERED: ALBUTEROL/IPRATROPIUM 3 ML NEB RESP TX STA (07:14)
[2022-06-20] MEDS ORDERED: methylPREDNISolone SOD SUC 125 MG/2 ML VIAL IV STA (07:14)
[2022-06-20 07:20] LABS: Basophils # 0.1 10*3/uL (0.0-0.2); Basophils % 0.6 % (0.0-0.8); Eosinophils # 0.2 10*3/uL (0.0-0.87); Eosinophils % 2.6 % (0.00-10.9); Hematocrit 34.5 VOL% (35.7-47.0); Hemoglobin 10.9 GM/DL (12.0-16.0); Immature Granulocytes % 0.5 %; Immature Granulocytes Absolute 0.04 #; Lymphocytes # 4.1 10*3/uL (1.4-4.0); Lymphocytes % 46.1 % (21.3-54.2); Mean Corpuscular HGB Conc 31.6 GM/DL (32-36); Mean Corpuscular Volume 91.8 FL (87-102); Mean Platelet Volume 10.6 FL (9.6-12.0); Monocytes # 0.8 10*3/uL (0.11-0.8); Monocytes % 8.5 % (1.7-12.7); Neutrophils % 41.7 % (38.7-73.9); Platelet Count 173 T/CUMM (130-400); Red Blood Count 3.76 MC/CUMM (3.8-5.5); Red Cell Distribution Width 16.2 % (9.3-17.3); White Blood Count 8.8 T/CUMM (4-12)
[2022-06-20 07:41] LABS: Bilirubin,Total 0.5 MG/DL (0.20-1.00); Calcium 8.8 MG/DL (8.5-10.1); Potassium 3.9 MMOL/L (3.5-5.1); Total Protein 6.7 G/DL (6.4-8.2)
[2022-06-20] MEDS ORDERED: cefTRIAXone 1,000 MG in SODIUM CHLORIDE 0.9% 100 ML IV STA (07:48)
[2022-06-20] MEDS ORDERED: AZITHROMYCIN INJ 500 MG in SODIUM CHLORIDE 0.9% 250 ML IV STA (07:49)
[2022-06-20] MEDS ORDERED: amLODIPine 5 MG TABLET PO STA (08:04)
[2022-06-20] MEDS ORDERED: hydrALAZINE 20 MG/1 ML VIAL IV PRN (08:17)
[2022-06-20] MEDS ORDERED: GLUCAGON 1 MG VIAL IM PRN (08:17)
[2022-06-20] MEDS ORDERED: FUROSEMIDE 40 MG/4 ML VIAL IV STA (08:32)
[2022-06-20] MEDS ORDERED: MIRTAZAPINE 30 MG TABLET PO PRN (08:38)
[2022-06-20] MEDS: NEBIVOLOL 10 MG TABLET PO SCH (08:40)
[2022-06-20] MEDS ORDERED: INSULIN REGULAR 100 UNIT/ML SUBCUT STA (08:42)
[2022-06-20] MEDS ORDERED: NON-FORMULARY MEDICATION (Glipizide 10 mg tablet extended release 24hr) PO SCH (09:00)
[2022-06-20] MEDS ORDERED: INSULIN DETEMIR 100 UNIT/ML SUBCUT SCH (09:00)
[2022-06-20] MEDS: ATORVASTATIN 80 MG TABLET PO SCH (10:17)
[2022-06-20] MEDS: MONTELUKAST 10 MG TABLET PO SCH (10:17)
[2022-06-20] MEDS: busPIRone 5 MG TABLET PO SCH ×2 (10:17→21:30)
[2022-06-20] MEDS: LISINOPRIL/HCTZ 20-25 MG TABLET PO SCH (10:17)
[2022-06-20] MEDS: PANTOPRAZOLE 40 MG TABLET PO SCH (10:18)
[2022-06-20] MEDS: ALBUTEROL/IPRATROPIUM 3 ML NEB RESP TX SCH ×4 (11:10→23:36)
[2022-06-20] MEDS: INSULIN LISPRO 100 UNIT/ML SUBCUT SCH ×3 (13:29→21:31)
[2022-06-20] MEDS: INSULIN GLARGINE 100 UNIT/ML SUBCUT SCH ×2 (13:31→21:32)
[2022-06-20] MEDS: methylPREDNISolone SOD SUC 40 MG/1 ML VIAL IV SCH ×2 (17:26→23:54)
[2022-06-20] MEDS: MELATONIN 3 MG TABLET PO SCH (21:30)
[2022-06-20] MEDS: ESCITALOPRAM 10 MG TABLET PO SCH (21:30)
[2022-06-20] MEDS: ENOXAPARIN 40 MG/0.4 ML SYRINGE SUBCUT SCH (21:31)
[2022-06-21] MEDS: ALBUTEROL/IPRATROPIUM 3 ML NEB RESP TX SCH ×6 (04:12→23:37)
[2022-06-21 05:57] LABS: Basophils % 0.1 % (0.0-0.8); Hematocrit 31.7 VOL% (35.7-47.0); Hemoglobin 10.2 GM/DL (12.0-16.0); Immature Granulocytes % 0.6 %; Immature Granulocytes Absolute 0.07 #; Lymphocytes # 1.1 10*3/uL (1.4-4.0); Lymphocytes % 9.9 % (21.3-54.2); Mean Corpuscular HGB Conc 32.2 GM/DL (32-36); Mean Corpuscular Volume 91.6 FL (87-102); Mean Platelet Volume 10.8 FL (9.6-12.0); Monocytes # 0.2 10*3/uL (0.11-0.8); Monocytes % 1.9 % (1.7-12.7); Neutrophils % 87.5 % (38.7-73.9); Platelet Count 164 T/CUMM (130-400); Red Blood Count 3.46 MC/CUMM (3.8-5.5); Red Cell Distribution Width 16.4 % (9.3-17.3); White Blood Count 11.4 T/CUMM (4-12)
[2022-06-21] MEDS: methylPREDNISolone SOD SUC 40 MG/1 ML VIAL IV SCH ×3 (06:04→22:00)
[2022-06-21 06:26] LABS: Alanine Aminotransferase 33 U/L (13-56); Albumin 2.8 G/DL (3.4-5.0); Alkaline Phosphatase 98 U/L (45-117); Aspartate Amino Transferase 20 U/L (0-37); Bilirubin,Total < 0.39 MG/DL (0.20-1.00); Blood Urea Nitrogen 17 MG/DL (7-18); Calcium 8.9 MG/DL (8.5-10.1); Carbon Dioxide 30 MMOL/L (21-32); Chloride 110 MMOL/L (98-107); Cholesterol 193 MG/DL (50-200); Glucose 225 MG/DL (74-106); HDL Cholesterol 137 MG/DL (40-60); Osmolality,Calculated 296.7 MOS/KG (273-304); Potassium 4.7 MMOL/L (3.5-5.1); Risk Ratio 1.41; Sodium 145 MMOL/L (136-145); Total Protein 6.1 G/DL (6.4-8.2); Triglycerides 57 MG/DL (2-150); VLDL Cholesterol 11.4 MG/DL
[2022-06-21] MEDS: INSULIN GLARGINE 100 UNIT/ML SUBCUT SCH ×2 (09:13→22:02)
[2022-06-21] MEDS: cefTRIAXone 2,000 MG in SODIUM CHLORIDE 0.9% 100 ML IV SCH (09:14)
[2022-06-21] MEDS: NEBIVOLOL 10 MG TABLET PO SCH (09:14)
[2022-06-21] MEDS: LISINOPRIL/HCTZ 20-25 MG TABLET PO SCH (09:14)
[2022-06-21] MEDS: INSULIN LISPRO 100 UNIT/ML SUBCUT SCH ×4 (09:14→22:02)
[2022-06-21] MEDS: MONTELUKAST 10 MG TABLET PO SCH (09:15)
[2022-06-21] MEDS: busPIRone 5 MG TABLET PO SCH ×2 (09:15→22:00)
[2022-06-21] MEDS: PANTOPRAZOLE 40 MG TABLET PO SCH (09:15)
[2022-06-21] MEDS: ATORVASTATIN 80 MG TABLET PO SCH (09:15)
[2022-06-21] MEDS: amLODIPine 5 MG TABLET PO SCH (09:15)
[2022-06-21] MEDS: FUROSEMIDE 40 MG/4 ML VIAL IV SCH (09:15)
[2022-06-21 10:02] LABS: Free T4 (Free Thyroxine) 0.86 NG/DL (0.76-1.46); Thyroid Stimulating Hormone 0.257 uIU/ml (0.358-3.74)
[2022-06-21 11:19] LABS: Bacteria,Urine Many /HPF (Few); Mucus,Urine Occasional /LPF (Occasional); RBC,Urine 2 /HPF (0-4); Squamous Epithelial Cell,Urine Occasional /HPF (0-10)
[2022-06-21 11:20] LABS: Urine Appearance Cloudy (Clear); Urine Color Yellow (Yellow)
[2022-06-21 11:21] LABS: Bilirubin,Urine Negative (Negative); Blood, Urine Trace mg/dL (Negative); Glucose,Urine (UA) 100 mg/dL (Negative); Ketones,Urine Trace mg/dL (Negative); Nitrite,Urine Negative (Negative); Protein,Urine Negative (Negative); Urine Specific Gravity 1.015 (1.001-1.035); Urine Urobilinogen 0.2 eU/dL (<2.0); Urine pH 5.5 (4.5-8.0)
[2022-06-21] MEDS: AZITHROMYCIN INJ 500 MG in SODIUM CHLORIDE 0.9% 250 ML IV SCH (15:16)
[2022-06-21] MEDS: ALUMINUM/MAGNES/SIMETH MAX STR 30 ML UDCUP PO PRN (21:59)
[2022-06-21] MEDS: ENOXAPARIN 40 MG/0.4 ML SYRINGE SUBCUT SCH (22:00)
[2022-06-21] MEDS: ONDANSETRON 4 MG/2 ML VIAL IV PRN (22:00)
[2022-06-21] MEDS: MELATONIN 3 MG TABLET PO SCH (22:00)
[2022-06-21] MEDS: ESCITALOPRAM 10 MG TABLET PO SCH (22:01)
[2022-06-22] MEDS: PROMETHAZINE 25 MG/1 ML VIAL IM PRN (00:24)
[2022-06-22] MEDS: ALBUTEROL/IPRATROPIUM 3 ML NEB RESP TX SCH ×6 (03:14→23:06)
[2022-06-22 05:12] LABS: Hematocrit 29.9 VOL% (35.7-47.0); Hemoglobin 9.8 GM/DL (12.0-16.0); Immature Granulocytes % 0.9 %; Immature Granulocytes Absolute 0.08 #; Lymphocytes # 0.8 10*3/uL (1.4-4.0); Lymphocytes % 8.4 % (21.3-54.2); Mean Corpuscular HGB Conc 32.8 GM/DL (32-36); Mean Corpuscular Volume 90.3 FL (87-102); Mean Platelet Volume 10.9 FL (9.6-12.0); Monocytes # 0.4 10*3/uL (0.11-0.8); Monocytes % 4.2 % (1.7-12.7); Neutrophils % 86.5 % (38.7-73.9); Platelet Count 161 T/CUMM (130-400); Red Blood Count 3.31 MC/CUMM (3.8-5.5); Red Cell Distribution Width 16.5 % (9.3-17.3); White Blood Count 9.1 T/CUMM (4-12)
[2022-06-22 05:38] LABS: Alanine Aminotransferase 70 U/L (13-56); Albumin 2.7 G/DL (3.4-5.0); Alkaline Phosphatase 111 U/L (45-117); Aspartate Amino Transferase 118 U/L (0-37); Bilirubin,Total < 0.39 MG/DL (0.20-1.00); Blood Urea Nitrogen 23 MG/DL (7-18); Calcium 8.9 MG/DL (8.5-10.1); Carbon Dioxide 29 MMOL/L (21-32); Chloride 109 MMOL/L (98-107); Glucose 191 MG/DL (74-106); Osmolality,Calculated 294.8 MOS/KG (273-304); Sodium 144 MMOL/L (136-145); Total Protein 5.9 G/DL (6.4-8.2)
[2022-06-22] MEDS: methylPREDNISolone SOD SUC 40 MG/1 ML VIAL IV SCH ×3 (06:00→23:30)
[2022-06-22] MEDS: INSULIN LISPRO 100 UNIT/ML SUBCUT SCH ×4 (09:06→22:42)
[2022-06-22] MEDS: INSULIN GLARGINE 100 UNIT/ML SUBCUT SCH ×2 (09:07→21:43)
[2022-06-22] MEDS: cefTRIAXone 2,000 MG in SODIUM CHLORIDE 0.9% 100 ML IV SCH (09:07)
[2022-06-22] MEDS: FUROSEMIDE 40 MG/4 ML VIAL IV SCH (09:14)
[2022-06-22] MEDS: AZITHROMYCIN INJ 500 MG in SODIUM CHLORIDE 0.9% 250 ML IV SCH (10:36)
[2022-06-22] MEDS: PANTOPRAZOLE 40 MG TABLET PO SCH (10:39)
[2022-06-22] MEDS: NEBIVOLOL 10 MG TABLET PO SCH (10:39)
[2022-06-22] MEDS: ATORVASTATIN 80 MG TABLET PO SCH (10:39)
[2022-06-22] MEDS: MONTELUKAST 10 MG TABLET PO SCH (10:39)
[2022-06-22] MEDS: busPIRone 5 MG TABLET PO SCH ×2 (10:39→22:15)
[2022-06-22] MEDS: amLODIPine 5 MG TABLET PO SCH (10:39)
[2022-06-22] MEDS: LISINOPRIL/HCTZ 20-25 MG TABLET PO SCH (10:40)
[2022-06-22] MEDS: MELATONIN 3 MG TABLET PO SCH (22:43)
[2022-06-22] MEDS: ENOXAPARIN 40 MG/0.4 ML SYRINGE SUBCUT SCH (22:43)
[2022-06-22] MEDS: ESCITALOPRAM 10 MG TABLET PO SCH (22:43)
[2022-06-23] MEDS: ALBUTEROL/IPRATROPIUM 3 ML NEB RESP TX SCH ×5 (02:41→20:43)
[2022-06-23 04:58] LABS: Basophils % 0.1 % (0.0-0.8); Hematocrit 28.9 VOL% (35.7-47.0); Hemoglobin 9.5 GM/DL (12.0-16.0); Immature Granulocytes % 1.1 %; Immature Granulocytes Absolute 0.09 #; Lymphocytes # 1.1 10*3/uL (1.4-4.0); Lymphocytes % 13.5 % (21.3-54.2); Mean Corpuscular HGB Conc 32.9 GM/DL (32-36); Mean Platelet Volume 10.3 FL (9.6-12.0); Monocytes # 0.9 10*3/uL (0.11-0.8); Monocytes % 11.4 % (1.7-12.7); Neutrophils % 73.9 % (38.7-73.9); Platelet Count 159 T/CUMM (130-400); Red Blood Count 3.21 MC/CUMM (3.8-5.5); Red Cell Distribution Width 16.7 % (9.3-17.3); White Blood Count 8.2 T/CUMM (4-12)
[2022-06-23 05:18] LABS: Alanine Aminotransferase 47 U/L (13-56); Albumin 2.5 G/DL (3.4-5.0); Alkaline Phosphatase 92 U/L (45-117); Aspartate Amino Transferase 46 U/L (0-37); Bilirubin,Total < 0.39 MG/DL (0.20-1.00); Blood Urea Nitrogen 25 MG/DL (7-18); Calcium 8.8 MG/DL (8.5-10.1); Carbon Dioxide 30 MMOL/L (21-32); Chloride 110 MMOL/L (98-107); Glucose 213 MG/DL (74-106); Osmolality,Calculated 297.7 MOS/KG (273-304); Sodium 145 MMOL/L (136-145); Total Protein 5.7 G/DL (6.4-8.2)
[2022-06-23] MEDS: INSULIN LISPRO 100 UNIT/ML SUBCUT SCH ×4 (08:02→20:45)
[2022-06-23] MEDS: cefTRIAXone 2,000 MG in SODIUM CHLORIDE 0.9% 100 ML IV SCH (09:59)
[2022-06-23] MEDS: LACTATED RINGERS 1,000 ML IV SCH (10:00)
[2022-06-23] MEDS: methylPREDNISolone SOD SUC 40 MG/1 ML VIAL IV SCH ×3 (11:24→23:24)
[2022-06-23] MEDS: NEBIVOLOL 10 MG TABLET PO SCH (11:25)
[2022-06-23] MEDS: busPIRone 5 MG TABLET PO SCH ×2 (11:25→20:45)
[2022-06-23] MEDS: INSULIN GLARGINE 100 UNIT/ML SUBCUT SCH ×2 (11:25→20:45)
[2022-06-23] MEDS: FUROSEMIDE 40 MG/4 ML VIAL IV SCH (11:26)
[2022-06-23] MEDS: amLODIPine 5 MG TABLET PO SCH (11:26)
[2022-06-23] MEDS: ATORVASTATIN 80 MG TABLET PO SCH (11:26)
[2022-06-23] MEDS: LISINOPRIL/HCTZ 20-25 MG TABLET PO SCH (11:27)
[2022-06-23] MEDS: MONTELUKAST 10 MG TABLET PO SCH (11:27)
[2022-06-23] MEDS: PANTOPRAZOLE 40 MG TABLET PO SCH (11:27)
[2022-06-23] MEDS ORDERED: ETOMIDATE 20 MG/10 ML VIAL IV ONE (12:06)
[2022-06-23] MEDS ORDERED: LIDOCAINE 2% 5 ML VIAL ONE (12:06)
[2022-06-23] MEDS ORDERED: propofoL 200 MG/20 ML VIAL IV ONE (12:15)
[2022-06-23] MEDS: AZITHROMYCIN INJ 500 MG in SODIUM CHLORIDE 0.9% 250 ML IV SCH (13:41)
[2022-06-23] MEDS ORDERED: GLUCAGON 1 MG VIAL IM PRN (14:02)
[2022-06-23] MEDS ORDERED: DEXTROSE 50% 25 GM/50 ML VIAL IV PRN (14:02)
[2022-06-23] MEDS: DEXTROSE 10% 250 ML BAG IV PRN (14:42)
[2022-06-23] MEDS: MEROPENEM 500 MG in SODIUM CHLORIDE 0.9% 100 ML IV SCH ×2 (16:30→23:18)
[2022-06-23] MEDS: ENOXAPARIN 40 MG/0.4 ML SYRINGE SUBCUT SCH (20:45)
[2022-06-23] MEDS: MELATONIN 3 MG TABLET PO SCH (20:45)
[2022-06-23] MEDS: ESCITALOPRAM 10 MG TABLET PO SCH (20:45)
[2022-06-23] MEDS: PROMETHAZINE 25 MG/1 ML VIAL IM PRN (21:00)
[2022-06-24] MEDS: ALBUTEROL/IPRATROPIUM 3 ML NEB RESP TX SCH ×7 (00:03→23:33)
[2022-06-24 05:30] LABS: Alanine Aminotransferase 48 U/L (13-56); Albumin 2.9 G/DL (3.4-5.0); Alkaline Phosphatase 104 U/L (45-117); Aspartate Amino Transferase 36 U/L (0-37); Bilirubin,Total < 0.39 MG/DL (0.20-1.00); Blood Urea Nitrogen 18 MG/DL (7-18); Calcium 8.5 MG/DL (8.5-10.1); Carbon Dioxide 32 MMOL/L (21-32); Chloride 108 MMOL/L (98-107); Glucose 228 MG/DL (74-106); Osmolality,Calculated 296.7 MOS/KG (273-304); Potassium 3.9 MMOL/L (3.5-5.1); Sodium 145 MMOL/L (136-145); Total Protein 6.3 G/DL (6.4-8.2)
[2022-06-24] MEDS: MEROPENEM 500 MG in SODIUM CHLORIDE 0.9% 100 ML IV SCH ×4 (05:49→20:52)
[2022-06-24] MEDS: methylPREDNISolone SOD SUC 40 MG/1 ML VIAL IV SCH ×2 (06:28→16:41)
[2022-06-24 08:25] LABS: Basophils % 0.1 % (0.0-0.8); Hematocrit 33.7 VOL% (35.7-47.0); Hemoglobin 10.8 GM/DL (12.0-16.0); Immature Granulocytes % 0.8 %; Immature Granulocytes Absolute 0.06 #; Lymphocytes # 1.1 10*3/uL (1.4-4.0); Lymphocytes % 14.4 % (21.3-54.2); Mean Corpuscular Volume 92.1 FL (87-102); Mean Platelet Volume 11.4 FL (9.6-12.0); Monocytes # 0.4 10*3/uL (0.11-0.8); Monocytes % 5.2 % (1.7-12.7); Neutrophils % 79.5 % (38.7-73.9); Platelet Count 191 T/CUMM (130-400); Red Blood Count 3.66 MC/CUMM (3.8-5.5); Red Cell Distribution Width 16.5 % (9.3-17.3); White Blood Count 7.5 T/CUMM (4-12)
[2022-06-24] MEDS: PANTOPRAZOLE 40 MG TABLET PO SCH (09:33)
[2022-06-24] MEDS: INSULIN GLARGINE 100 UNIT/ML SUBCUT SCH (09:33)
[2022-06-24] MEDS: LISINOPRIL/HCTZ 20-25 MG TABLET PO SCH (09:33)
[2022-06-24] MEDS: INSULIN LISPRO 100 UNIT/ML SUBCUT SCH ×4 (09:33→23:56)
[2022-06-24] MEDS: amLODIPine 5 MG TABLET PO SCH (09:33)
[2022-06-24] MEDS: ATORVASTATIN 80 MG TABLET PO SCH (09:34)
[2022-06-24] MEDS: NEBIVOLOL 10 MG TABLET PO SCH (09:34)
[2022-06-24] MEDS: busPIRone 5 MG TABLET PO SCH ×2 (09:34→20:52)
[2022-06-24] MEDS: FUROSEMIDE 40 MG/4 ML VIAL IV SCH (09:34)
[2022-06-24] MEDS: MONTELUKAST 10 MG TABLET PO SCH (09:34)
[2022-06-24] MEDS: AZITHROMYCIN INJ 500 MG in SODIUM CHLORIDE 0.9% 250 ML IV SCH (09:35)
[2022-06-24] MEDS: LACTATED RINGERS 1,000 ML IV SCH (09:36)
[2022-06-24] MEDS ORDERED: FOSFOMYCIN 3 GM PACK PO ONE (11:00)
[2022-06-24] MEDS ORDERED: MAGNESIUM SULF RIDER 2 GM/50 ML PREMIX IV ONE (11:00)
[2022-06-24 11:40] LABS: Bacteria,Urine Occasional /HPF (Few); Bilirubin,Urine Negative (Negative); Blood, Urine Trace mg/dL (Negative); Glucose,Urine (UA) 100 mg/dL (Negative); Ketones,Urine Negative (Negative); Mucus,Urine Many /LPF (Occasional); Nitrite,Urine Positive (Negative); Protein,Urine Negative (Negative); RBC,Urine 8 /HPF (0-4); Urine Appearance Clear (Clear); Urine Color Yellow (Yellow); Urine Urobilinogen 0.2 eU/dL (<2.0)
[2022-06-24] MEDS: ONDANSETRON 4 MG/2 ML VIAL IV PRN (16:36)
[2022-06-24] MEDS: DEXTROSE 10% 250 ML BAG IV PRN (17:00)
[2022-06-24] MEDS: ESCITALOPRAM 10 MG TABLET PO SCH (20:52)
[2022-06-24] MEDS: MELATONIN 3 MG TABLET PO SCH (20:52)
[2022-06-24] MEDS: ENOXAPARIN 40 MG/0.4 ML SYRINGE SUBCUT SCH (20:53)
[2022-06-24] MEDS: ALUMINUM/MAGNES/SIMETH MAX STR 30 ML UDCUP PO PRN (21:01)
[2022-06-25] MEDS: ALBUTEROL/IPRATROPIUM 3 ML NEB RESP TX SCH ×3 (03:16→11:30)
[2022-06-25] MEDS: MEROPENEM 500 MG in SODIUM CHLORIDE 0.9% 100 ML IV SCH ×2 (03:46→09:18)
[2022-06-25] MEDS ORDERED: methylPREDNISolone SOD SUC 40 MG/1 ML VIAL IV SCH (04:30)
[2022-06-25 05:52] LABS: Eosinophils # 0.2 10*3/uL (0.0-0.87); Eosinophils % 2.7 % (0.00-10.9); Hematocrit 30.9 VOL% (35.7-47.0); Hemoglobin 9.9 GM/DL (12.0-16.0); Immature Granulocytes Absolute 0.07 #; Lymphocytes # 2.6 10*3/uL (1.4-4.0); Mean Corpuscular Volume 90.9 FL (87-102); Monocytes # 0.6 10*3/uL (0.11-0.8); Monocytes % 8.6 % (1.7-12.7); Neutrophils % 50.7 % (38.7-73.9); Platelet Count 169 T/CUMM (130-400); Red Cell Distribution Width 16.3 % (9.3-17.3); White Blood Count 7.1 T/CUMM (4-12)
[2022-06-25 06:08] LABS: Albumin 2.5 G/DL (3.4-5.0); Bilirubin,Total 0.5 MG/DL (0.20-1.00); Calcium 8.6 MG/DL (8.5-10.1); Osmolality,Calculated 289.6 MOS/KG (273-304); Potassium 3.4 MMOL/L (3.5-5.1); Total Protein 5.4 G/DL (6.4-8.2)
[2022-06-25] MEDS ORDERED: POTASSIUM CHLORIDE 20 MEQ TABLET PO ONE (07:18)
[2022-06-25] MEDS: INSULIN LISPRO 100 UNIT/ML SUBCUT SCH ×2 (08:45→12:09)
[2022-06-25] MEDS ORDERED: INSULIN GLARGINE 100 UNIT/ML SUBCUT SCH (09:00)
[2022-06-25] MEDS: LACTATED RINGERS 1,000 ML IV SCH (09:18)
[2022-06-25] MEDS: NEBIVOLOL 10 MG TABLET PO SCH (09:19)
[2022-06-25] MEDS: FUROSEMIDE 40 MG/4 ML VIAL IV SCH (09:19)
[2022-06-25] MEDS: ATORVASTATIN 80 MG TABLET PO SCH (09:20)
[2022-06-25] MEDS: MONTELUKAST 10 MG TABLET PO SCH (09:20)
[2022-06-25] MEDS: busPIRone 5 MG TABLET PO SCH (09:20)
[2022-06-25] MEDS: PANTOPRAZOLE 40 MG TABLET PO SCH (09:20)
[2022-06-25] MEDS: LISINOPRIL/HCTZ 20-25 MG TABLET PO SCH (09:23)
[2022-06-25] MEDS: amLODIPine 5 MG TABLET PO SCH (10:35)
[2022-06-25] MEDS: AZITHROMYCIN INJ 500 MG in SODIUM CHLORIDE 0.9% 250 ML IV SCH (10:42)
[2022-06-25 11:39] VITALS: BP 106/65
[2022-06-25] MEDS ORDERED: FOSFOMYCIN 3 GM PACK PO ONE (13:00)
== END 2022-06-25 13:55 | disposition home or self-care (01) | DRG 191 ==
LOC: N.ED 06:59 → N.EDINP 08:17 → SUATTDRO 08:17 → N.5E 09:00
PROVIDERS: ADMIT Emergency Medicine; ATTEND Internal Medicine

== ENCOUNTER 2022-08-23 09:50 | Inpatient (IN) ==
[2022-08-23 14:27] LABS: Bacteria,Urine Moderate /HPF (Few); Glucose,Urine (UA) Negative (Negative); Protein,Urine >=300 mg/dL (Negative); RBC,Urine 41 /HPF (0-4); Urine Appearance Turbid (Clear); Urine Color Red (Yellow); Urine pH 5.5 (4.5-8.0)
[2022-08-23 14:28] LABS: Bilirubin,Urine Small mg/dL (Negative); Blood, Urine Large mg/dL (Negative); Ketones,Urine Negative (Negative); Nitrite,Urine Positive (Negative)
[2022-08-23 14:38] LABS: Basophils % 0.3 % (0.0-0.8); Eosinophils % 0.2 % (0.00-10.9); Hematocrit 31.1 VOL% (35.7-47.0); Hemoglobin 9.9 GM/DL (12.0-16.0); Immature Granulocytes % 0.9 %; Immature Granulocytes Absolute 0.09 #; Lymphocytes # 1.6 10*3/uL (1.4-4.0); Lymphocytes % 17.1 % (21.3-54.2); Mean Corpuscular HGB Conc 31.8 GM/DL (32-36); Mean Corpuscular Volume 94.8 FL (87-102); Mean Platelet Volume 10.1 FL (9.6-12.0); Monocytes # 0.4 10*3/uL (0.11-0.8); Monocytes % 4.3 % (1.7-12.7); Neutrophils % 77.2 % (38.7-73.9); Platelet Count 202 T/CUMM (130-400); Red Blood Count 3.28 MC/CUMM (3.8-5.5); Red Cell Distribution Width 16.6 % (9.3-17.3); White Blood Count 9.5 T/CUMM (4-12)
[2022-08-23] MEDS ORDERED: cefTRIAXone 1,000 MG in SODIUM CHLORIDE 0.9% 100 ML IV STA (14:44)
[2022-08-23 15:32] LABS: Albumin 2.4 G/DL (3.4-5.0); Bilirubin,Total 0.6 MG/DL (0.20-1.00); Calcium 8.7 MG/DL (8.5-10.1); Osmolality,Calculated 290.3 MOS/KG (273-304); Total Protein 6.5 G/DL (6.4-8.2)
[2022-08-23 15:45] LABS: Potassium 6.6 MMOL/L (3.5-5.1)
[2022-08-23] MEDS ORDERED: SODIUM CHLORIDE 0.9% 1,000 ML IV STA (15:50)
[2022-08-23] MEDS ORDERED: ONDANSETRON 4 MG/2 ML VIAL IV PRN (16:09)
[2022-08-23] MEDS ORDERED: GLUCAGON 1 MG VIAL IM PRN (16:09)
[2022-08-23] MEDS ORDERED: DEXTROSE 10% 250 ML BAG IV PRN (16:25)
[2022-08-23] MEDS: INSULIN LISPRO 100 UNIT/ML SUBCUT SCH ×2 (17:13→20:38)
[2022-08-23] MEDS ORDERED: INSULIN REGULAR 10 UNIT, CALCIUM GLUCONATE 1,000 MG in DEXTROSE 10% 250 ML IV ONE (18:00)
[2022-08-23] MEDS: SODIUM CHLORIDE 0.9% 1,000 ML IV SCH (18:15)
[2022-08-23] MEDS: SODIUM ZIRCONIUM CYCLOSILICATE 10 GM PACK PO SCH (18:15)
[2022-08-23] MEDS: ACETAMINOPHEN 325 MG TABLET PO PRN (20:39)
[2022-08-24] MEDS: SODIUM ZIRCONIUM CYCLOSILICATE 10 GM PACK PO SCH ×3 (03:24→18:08)
[2022-08-24] MEDS: SODIUM CHLORIDE 0.9% 1,000 ML IV SCH ×3 (05:01→18:07)
[2022-08-24 05:03] LABS: Calcium 8.1 MG/DL (8.5-10.1); Osmolality,Calculated 296.4 MOS/KG (273-304); Potassium 5.7 MMOL/L (3.5-5.1)
[2022-08-24 05:19] LABS: Basophils % 0.4 % (0.0-0.8); Eosinophils # 0.2 10*3/uL (0.0-0.87); Hematocrit 25.3 VOL% (35.7-47.0); Immature Granulocytes % 1.7 %; Immature Granulocytes Absolute 0.13 #; Lymphocytes # 2.3 10*3/uL (1.4-4.0); Lymphocytes % 30.4 % (21.3-54.2); Mean Corpuscular HGB Conc 31.6 GM/DL (32-36); Mean Corpuscular Volume 94.8 FL (87-102); Mean Platelet Volume 10.5 FL (9.6-12.0); Monocytes # 0.9 10*3/uL (0.11-0.8); Monocytes % 11.1 % (1.7-12.7); Neutrophils % 54.4 % (38.7-73.9); Platelet Count 166 T/CUMM (130-400); Red Blood Count 2.67 MC/CUMM (3.8-5.5); Red Cell Distribution Width 16.5 % (9.3-17.3); White Blood Count 7.7 T/CUMM (4-12)
[2022-08-24] MEDS: INSULIN LISPRO 100 UNIT/ML SUBCUT SCH ×4 (07:22→21:47)
[2022-08-24] MEDS: cefTRIAXone 2,000 MG in SODIUM CHLORIDE 0.9% 100 ML IV SCH (09:02)
[2022-08-24] MEDS: PANTOPRAZOLE 40 MG TABLET PO SCH (09:07)
[2022-08-24] MEDS: ACETAMINOPHEN 325 MG TABLET PO PRN (12:02)
[2022-08-25] MEDS: SODIUM CHLORIDE 0.9% 1,000 ML IV SCH ×2 (01:15→15:30)
[2022-08-25] MEDS: SODIUM ZIRCONIUM CYCLOSILICATE 10 GM PACK PO SCH ×3 (02:02→09:14)
[2022-08-25 05:16] LABS: Basophils % 0.5 % (0.0-0.8); Eosinophils # 0.2 10*3/uL (0.0-0.87); Eosinophils % 2.1 % (0.00-10.9); Hematocrit 27.1 VOL% (35.7-47.0); Hemoglobin 8.5 GM/DL (12.0-16.0); Immature Granulocytes Absolute 0.17 #; Lymphocytes # 1.8 10*3/uL (1.4-4.0); Lymphocytes % 21.1 % (21.3-54.2); Mean Corpuscular HGB Conc 31.4 GM/DL (32-36); Mean Corpuscular Volume 96.4 FL (87-102); Monocytes # 0.9 10*3/uL (0.11-0.8); Monocytes % 10.8 % (1.7-12.7); Neutrophils % 63.5 % (38.7-73.9); Platelet Count 162 T/CUMM (130-400); Red Blood Count 2.81 MC/CUMM (3.8-5.5); Red Cell Distribution Width 16.3 % (9.3-17.3); White Blood Count 8.5 T/CUMM (4-12)
[2022-08-25 05:48] LABS: Calcium 8.2 MG/DL (8.5-10.1); Osmolality,Calculated 294.3 MOS/KG (273-304)
[2022-08-25] MEDS: INSULIN LISPRO 100 UNIT/ML SUBCUT SCH ×4 (08:27→21:20)
[2022-08-25] MEDS: PANTOPRAZOLE 40 MG TABLET PO SCH (08:59)
[2022-08-25] MEDS: cefTRIAXone 2,000 MG in SODIUM CHLORIDE 0.9% 100 ML IV SCH (08:59)
[2022-08-25] MEDS: LACTATED RINGERS 1,000 ML IV SCH ×2 (10:08→18:03)
[2022-08-26] MEDS: LACTATED RINGERS 1,000 ML IV SCH ×2 (01:41→09:15)
[2022-08-26 06:29] LABS: Osmolality,Calculated 291.4 MOS/KG (273-304); Potassium 3.9 MMOL/L (3.5-5.1)
[2022-08-26] MEDS: INSULIN LISPRO 100 UNIT/ML SUBCUT SCH ×2 (08:06→11:51)
[2022-08-26] MEDS: cefTRIAXone 2,000 MG in SODIUM CHLORIDE 0.9% 100 ML IV SCH (09:13)
[2022-08-26] MEDS: PANTOPRAZOLE 40 MG TABLET PO SCH (09:13)
[2022-08-26 12:14] VITALS: BP 159/76
== END 2022-08-26 12:32 | disposition home health service (06) | DRG 690 ==
LOC: N.ED 09:50 → N.EDINP 17:11 → SUATTDRO 17:11 → N.EDINP 17:39 → N.TELEN 17:46
PROVIDERS: ADMIT Emergency Medicine; ATTEND Internal Medicine Geriatric Medicine

== ENCOUNTER 2022-09-23 01:20 | Inpatient (IN) ==
[2022-09-23] MEDS ORDERED: PANTOPRAZOLE 40 MG VIAL IV STA (01:45)
[2022-09-23] MEDS ORDERED: ONDANSETRON 4 MG/2 ML VIAL IV STA (01:45)
[2022-09-23] MEDS ORDERED: SODIUM CHLORIDE 0.9% 500 ML IV STA (01:45)
[2022-09-23] MEDS ORDERED: METOCLOPRAMIDE 10 MG/2 ML VIAL IV STA (01:46)
[2022-09-23 03:26] LABS: Bacteria,Urine Occasional /HPF (Few); Bilirubin,Urine Negative (Negative); Blood, Urine Small mg/dL (Negative); Glucose,Urine (UA) 100 mg/dL (Negative); Ketones,Urine Trace mg/dL (Negative); Mucus,Urine Occasional /LPF (Occasional); Nitrite,Urine Negative (Negative); Protein,Urine 30 mg/dL (Negative); RBC,Urine 1 /HPF (0-4); Squamous Epithelial Cell,Urine Occasional /HPF (0-10); Urine Appearance Clear (Clear); Urine Color Yellow (Yellow); Urine Specific Gravity 1.015 (1.001-1.035); Urine Urobilinogen 0.2 eU/dL (<2.0)
[2022-09-23 03:26] LABS: Basophils % 0.1 % (0.0-0.8); Hematocrit 36.3 VOL% (35.7-47.0); Immature Granulocytes % 0.9 %; Immature Granulocytes Absolute 0.18 #; Lymphocytes # 1.6 10*3/uL (1.4-4.0); Lymphocytes % 8.1 % (21.3-54.2); Mean Corpuscular HGB Conc 33.1 GM/DL (32-36); Mean Corpuscular Volume 90.1 FL (87-102); Mean Platelet Volume 10.5 FL (9.6-12.0); Monocytes # 1.1 10*3/uL (0.11-0.8); Monocytes % 5.2 % (1.7-12.7); Neutrophils % 85.7 % (38.7-73.9); Platelet Count 269 T/CUMM (130-400); Red Cell Distribution Width 15.8 % (9.3-17.3); White Blood Count 20.24 T/CUMM (4-12)
[2022-09-23 03:30] LABS: Red Blood Count 4.03 MC/CUMM (3.8-5.5)
[2022-09-23] MEDS ORDERED: VANCOMYCIN INJ 1,000 MG in SODIUM CHLORIDE 0.9% 250 ML IV STA (03:36)
[2022-09-23 03:44] LABS: Albumin 2.3 G/DL (3.4-5.0); Bilirubin,Total 0.5 MG/DL (0.20-1.00); Calcium 9.1 MG/DL (8.5-10.1); Osmolality,Calculated 295.7 MOS/KG (273-304); Potassium 4.7 MMOL/L (3.5-5.1); Total Protein 5.9 G/DL (6.4-8.2)
[2022-09-23] MEDS ORDERED: MAGNESIUM SULF RIDER 2 GM/50 ML PREMIX IV STA (03:47)
[2022-09-23 03:48] LABS: Eosinophils 1 % (0-10); Lymphocytes 6 % (20-55); Platelet Estimate Normal; Total Cells Counted 100
[2022-09-23] MEDS ORDERED: MORPHINE 2 MG/1 ML SYRINGE IV PRN (04:46)
[2022-09-23] MEDS ORDERED: hydrALAZINE 20 MG/1 ML VIAL IV PRN (04:46)
[2022-09-23] MEDS ORDERED: DEXTROSE 10% 250 ML BAG IV PRN (05:10)
[2022-09-23] MEDS: INSULIN LISPRO 100 UNIT/ML SUBCUT SCH ×4 (06:33→23:59)
[2022-09-23 07:05] LABS: Basophils % 0.1 % (0.0-0.8); Eosinophils # 0.1 10*3/uL (0.0-0.87); Eosinophils % 0.3 % (0.00-10.9); Hemoglobin 10.5 GM/DL (12.0-16.0); Immature Granulocytes Absolute 0.19 #; Lymphocytes # 1.6 10*3/uL (1.4-4.0); Lymphocytes % 8.6 % (21.3-54.2); Mean Corpuscular HGB Conc 31.8 GM/DL (32-36); Mean Corpuscular Volume 92.4 FL (87-102); Monocytes # 1.1 10*3/uL (0.11-0.8); Monocytes % 5.9 % (1.7-12.7); Neutrophils % 84.1 % (38.7-73.9); Platelet Count 226 T/CUMM (130-400); Red Blood Count 3.57 MC/CUMM (3.8-5.5); Red Cell Distribution Width 15.7 % (9.3-17.3); White Blood Count 18.32 T/CUMM (4-12)
[2022-09-23] MEDS: ALBUTEROL/IPRATROPIUM 3 ML NEB RESP TX SCH ×3 (08:00→18:56)
[2022-09-23] MEDS: ONDANSETRON 4 MG/2 ML VIAL IV PRN (10:09)
[2022-09-23] MEDS ORDERED: MAGNESIUM SULF RIDER 2 GM/50 ML PREMIX IV ONE (11:22)
[2022-09-23] MEDS: MEROPENEM 500 MG in SODIUM CHLORIDE 0.9% 100 ML IV SCH ×3 (12:00→22:12)
[2022-09-23] MEDS: SODIUM CHLORIDE 0.9% 1,000 ML IV SCH ×2 (12:19→23:52)
[2022-09-23] MEDS: MENTHOL/ZINC OXIDE OINT 71 GM JAR TOP SCH (21:22)
[2022-09-23] MEDS: PANTOPRAZOLE 40 MG VIAL IV SCH (21:22)
[2022-09-23] MEDS: busPIRone 10 MG TABLET PO SCH (21:22)
[2022-09-23] MEDS: ESCITALOPRAM 10 MG TABLET PO SCH (21:22)
[2022-09-23] MEDS: MELATONIN 3 MG TABLET PO SCH (21:22)
[2022-09-23] MEDS ORDERED: VANCOMYCIN INJ 750 MG in SODIUM CHLORIDE 0.9% 250 ML IV SCH (22:00)
[2022-09-24] MEDS: ALBUTEROL/IPRATROPIUM 3 ML NEB RESP TX SCH ×4 (00:03→19:41)
[2022-09-24 05:32] LABS: Basophils % 0.1 % (0.0-0.8); Eosinophils # 0.4 10*3/uL (0.0-0.87); Eosinophils % 3.3 % (0.00-10.9); Hematocrit 29.1 VOL% (35.7-47.0); Hemoglobin 9.1 GM/DL (12.0-16.0); Immature Granulocytes % 0.9 %; Immature Granulocytes Absolute 0.11 #; Lymphocytes # 1.8 10*3/uL (1.4-4.0); Lymphocytes % 14.7 % (21.3-54.2); Mean Corpuscular HGB Conc 31.3 GM/DL (32-36); Mean Corpuscular Volume 94.8 FL (87-102); Mean Platelet Volume 10.9 FL (9.6-12.0); Monocytes # 0.9 10*3/uL (0.11-0.8); Monocytes % 7.5 % (1.7-12.7); Neutrophils % 73.5 % (38.7-73.9); Platelet Count 197 T/CUMM (130-400); Red Blood Count 3.07 MC/CUMM (3.8-5.5); Red Cell Distribution Width 15.8 % (9.3-17.3); White Blood Count 11.97 T/CUMM (4-12)
[2022-09-24] MEDS: MEROPENEM 500 MG in SODIUM CHLORIDE 0.9% 100 ML IV SCH ×3 (05:37→19:02)
[2022-09-24 05:56] LABS: Albumin 1.6 G/DL (3.4-5.0); Bilirubin,Total 0.5 MG/DL (0.20-1.00); Calcium 8.1 MG/DL (8.5-10.1); Osmolality,Calculated 289.3 MOS/KG (273-304); Potassium 4.5 MMOL/L (3.5-5.1); Total Protein 4.7 G/DL (6.4-8.2)
[2022-09-24] MEDS: INSULIN LISPRO 100 UNIT/ML SUBCUT SCH ×3 (06:03→19:02)
[2022-09-24] MEDS ORDERED: DEXTROSE 5% NACL 0.9% 1,000 ML IV SCH (09:30)
[2022-09-24] MEDS: DORNASE ALFA 2.5 MG/2.5 ML VIAL RESP TX SCH ×2 (09:40→19:41)
[2022-09-24] MEDS: LACTATED RINGERS 1,000 ML IV SCH (11:09)
[2022-09-24] MEDS ORDERED: LIDOCAINE 2% 5 ML VIAL ONE (13:01)
[2022-09-24] MEDS ORDERED: ETOMIDATE 20 MG/10 ML VIAL IV ONE (13:01)
[2022-09-24] MEDS ORDERED: propofoL 200 MG/20 ML VIAL IV ONE (13:01)
[2022-09-24] MEDS: busPIRone 10 MG TABLET PO SCH ×2 (14:37→20:21)
[2022-09-24] MEDS: MONTELUKAST 10 MG TABLET PO SCH (14:37)
[2022-09-24] MEDS: NEBIVOLOL 10 MG TABLET PO SCH (14:37)
[2022-09-24] MEDS: hydroCHLOROthiazide 12.5 MG CAPSULE PO SCH (14:37)
[2022-09-24] MEDS: MENTHOL/ZINC OXIDE OINT 71 GM JAR TOP SCH ×2 (14:38→20:23)
[2022-09-24] MEDS: amLODIPine 2.5 MG TABLET PO SCH (14:38)
[2022-09-24] MEDS: MIRTAZAPINE 15 MG TABLET PO PRN (20:20)
[2022-09-24] MEDS: MELATONIN 3 MG TABLET PO SCH (20:20)
[2022-09-24] MEDS: PANTOPRAZOLE 40 MG VIAL IV SCH ×2 (20:23)
[2022-09-24] MEDS: ESCITALOPRAM 10 MG TABLET PO SCH (20:24)
[2022-09-25] MEDS: MEROPENEM 500 MG in SODIUM CHLORIDE 0.9% 100 ML IV SCH ×4 (00:38→19:30)
[2022-09-25] MEDS: INSULIN LISPRO 100 UNIT/ML SUBCUT SCH ×5 (00:40→23:54)
[2022-09-25] MEDS: ALBUTEROL/IPRATROPIUM 3 ML NEB RESP TX SCH ×4 (01:26→19:16)
[2022-09-25 05:20] LABS: Basophils % 0.2 % (0.0-0.8); Eosinophils # 0.4 10*3/uL (0.0-0.87); Eosinophils % 3.7 % (0.00-10.9); Hematocrit 26.7 VOL% (35.7-47.0); Hemoglobin 8.6 GM/DL (12.0-16.0); Immature Granulocytes % 0.7 %; Immature Granulocytes Absolute 0.07 #; Lymphocytes # 1.7 10*3/uL (1.4-4.0); Lymphocytes % 15.9 % (21.3-54.2); Mean Corpuscular HGB Conc 32.2 GM/DL (32-36); Mean Corpuscular Volume 91.4 FL (87-102); Mean Platelet Volume 10.5 FL (9.6-12.0); Monocytes % 9.6 % (1.7-12.7); Neutrophils % 69.9 % (38.7-73.9); Platelet Count 176 T/CUMM (130-400); Red Blood Count 2.92 MC/CUMM (3.8-5.5); Red Cell Distribution Width 15.6 % (9.3-17.3); White Blood Count 10.52 T/CUMM (4-12)
[2022-09-25 05:37] LABS: Calcium 7.9 MG/DL (8.5-10.1); Osmolality,Calculated 288.3 MOS/KG (273-304)
[2022-09-25] MEDS: DORNASE ALFA 2.5 MG/2.5 ML VIAL RESP TX SCH ×2 (07:38→19:16)
[2022-09-25] MEDS ORDERED: methylPREDNISolone SOD SUC 40 MG/1 ML VIAL IV ONE (08:21)
[2022-09-25] MEDS ORDERED: diphenhydrAMINE 50 MG/1 ML VIAL IV ONE (08:26)
[2022-09-25] MEDS ORDERED: diphenhydrAMINE 50 MG/1 ML VIAL ONE (08:26)
[2022-09-25] MEDS ORDERED: diphenhydrAMINE 50 MG/1 ML VIAL IV PRN (08:26)
[2022-09-25] MEDS ORDERED: FAMOTIDINE 20 MG/2 ML VIAL IV ONE (08:28)
[2022-09-25] MEDS ORDERED: FAMOTIDINE 20 MG/2 ML VIAL IV SCH (08:30)
[2022-09-25] MEDS: NEBIVOLOL 10 MG TABLET PO SCH (09:18)
[2022-09-25] MEDS: busPIRone 10 MG TABLET PO SCH ×2 (09:18→20:14)
[2022-09-25] MEDS: hydroCHLOROthiazide 12.5 MG CAPSULE PO SCH (09:18)
[2022-09-25] MEDS: amLODIPine 2.5 MG TABLET PO SCH (09:19)
[2022-09-25] MEDS: MONTELUKAST 10 MG TABLET PO SCH (09:22)
[2022-09-25] MEDS: MENTHOL/ZINC OXIDE OINT 71 GM JAR TOP SCH ×2 (09:23→20:20)
[2022-09-25] MEDS ORDERED: DEXTROSE 5% 1,000 ML IV SCH (09:30)
[2022-09-25] MEDS ORDERED: FUROSEMIDE 40 MG/4 ML VIAL IV ONE (10:07)
[2022-09-25] MEDS: PANTOPRAZOLE 40 MG VIAL IV SCH ×2 (11:05→20:14)
[2022-09-25] MEDS: methylPREDNISolone SOD SUC 40 MG/1 ML VIAL IV SCH (17:16)
[2022-09-25] MEDS: LACTATED RINGERS 1,000 ML IV SCH (18:36)
[2022-09-25] MEDS: MIRTAZAPINE 15 MG TABLET PO PRN (20:14)
[2022-09-25] MEDS: MELATONIN 3 MG TABLET PO SCH (20:14)
[2022-09-25] MEDS: ESCITALOPRAM 10 MG TABLET PO SCH (20:14)
[2022-09-26] MEDS: ALBUTEROL/IPRATROPIUM 3 ML NEB RESP TX SCH ×4 (00:19→18:55)
[2022-09-26] MEDS: MEROPENEM 500 MG in SODIUM CHLORIDE 0.9% 100 ML IV SCH ×4 (00:53→18:23)
[2022-09-26] MEDS: methylPREDNISolone SOD SUC 40 MG/1 ML VIAL IV SCH ×2 (05:22→16:48)
[2022-09-26] MEDS: INSULIN LISPRO 100 UNIT/ML SUBCUT SCH ×4 (05:23→23:59)
[2022-09-26] MEDS: DORNASE ALFA 2.5 MG/2.5 ML VIAL RESP TX SCH ×2 (07:40→18:55)
[2022-09-26] MEDS: NEBIVOLOL 10 MG TABLET PO SCH (08:44)
[2022-09-26] MEDS: busPIRone 10 MG TABLET PO SCH ×2 (08:44→20:44)
[2022-09-26] MEDS: MONTELUKAST 10 MG TABLET PO SCH (08:44)
[2022-09-26] MEDS: PANTOPRAZOLE 40 MG VIAL IV SCH ×2 (08:44→20:44)
[2022-09-26] MEDS: FUROSEMIDE 20 MG/2 ML VIAL IV SCH (08:45)
[2022-09-26] MEDS: MENTHOL/ZINC OXIDE OINT 71 GM JAR TOP SCH ×2 (10:00→21:55)
[2022-09-26] MEDS: ONDANSETRON 4 MG/2 ML VIAL IV PRN (18:22)
[2022-09-26] MEDS: MIRTAZAPINE 15 MG TABLET PO PRN (20:43)
[2022-09-26] MEDS: MELATONIN 3 MG TABLET PO SCH (20:44)
[2022-09-26] MEDS: ESCITALOPRAM 10 MG TABLET PO SCH (20:44)
[2022-09-27] MEDS: ALBUTEROL/IPRATROPIUM 3 ML NEB RESP TX SCH ×4 (00:02→20:05)
[2022-09-27] MEDS: MEROPENEM 500 MG in SODIUM CHLORIDE 0.9% 100 ML IV SCH ×4 (00:28→18:27)
[2022-09-27] MEDS: methylPREDNISolone SOD SUC 40 MG/1 ML VIAL IV SCH ×2 (05:29→16:30)
[2022-09-27 06:30] LABS: Basophils % 0.1 % (0.0-0.8); Hematocrit 31.7 VOL% (35.7-47.0); Hemoglobin 10.1 GM/DL (12.0-16.0); Immature Granulocytes % 1.1 %; Immature Granulocytes Absolute 0.18 #; Lymphocytes # 1.1 10*3/uL (1.4-4.0); Lymphocytes % 6.8 % (21.3-54.2); Mean Corpuscular HGB Conc 31.9 GM/DL (32-36); Mean Corpuscular Volume 91.6 FL (87-102); Mean Platelet Volume 10.9 FL (9.6-12.0); Monocytes # 1.3 10*3/uL (0.11-0.8); Platelet Count 214 T/CUMM (130-400); Red Blood Count 3.46 MC/CUMM (3.8-5.5); Red Cell Distribution Width 15.5 % (9.3-17.3)
[2022-09-27] MEDS: INSULIN LISPRO 100 UNIT/ML SUBCUT SCH ×3 (06:39→17:22)
[2022-09-27 07:02] LABS: Albumin 1.9 G/DL (3.4-5.0); Bilirubin,Total 0.4 MG/DL (0.20-1.00); Calcium 8.4 MG/DL (8.5-10.1); Osmolality,Calculated 298.8 MOS/KG (273-304); Phosphorous 2.8 MG/DL (2.5-4.9); Total Protein 5.5 G/DL (6.4-8.2)
[2022-09-27] MEDS: DORNASE ALFA 2.5 MG/2.5 ML VIAL RESP TX SCH ×2 (07:35→20:10)
[2022-09-27] MEDS: MONTELUKAST 10 MG TABLET PO SCH (08:43)
[2022-09-27] MEDS: FUROSEMIDE 20 MG/2 ML VIAL IV SCH (08:43)
[2022-09-27] MEDS: busPIRone 10 MG TABLET PO SCH ×2 (08:43→21:08)
[2022-09-27] MEDS: NEBIVOLOL 10 MG TABLET PO SCH (08:43)
[2022-09-27] MEDS: PANTOPRAZOLE 40 MG VIAL IV SCH ×2 (08:43→21:08)
[2022-09-27] MEDS: MENTHOL/ZINC OXIDE OINT 71 GM JAR TOP SCH ×2 (08:44→21:09)
[2022-09-27] MEDS ORDERED: LACTATED RINGERS 1,000 ML IV SCH (15:00)
[2022-09-27] MEDS: MIRTAZAPINE 15 MG TABLET PO PRN (21:08)
[2022-09-27] MEDS: MELATONIN 3 MG TABLET PO SCH (21:08)
[2022-09-27] MEDS: ESCITALOPRAM 10 MG TABLET PO SCH (21:09)
[2022-09-28] MEDS: INSULIN LISPRO 100 UNIT/ML SUBCUT SCH ×4 (00:13→18:00)
[2022-09-28] MEDS: MEROPENEM 500 MG in SODIUM CHLORIDE 0.9% 100 ML IV SCH ×4 (00:16→21:43)
[2022-09-28] MEDS: ALBUTEROL/IPRATROPIUM 3 ML NEB RESP TX SCH ×4 (00:55→19:36)
[2022-09-28] MEDS: methylPREDNISolone SOD SUC 40 MG/1 ML VIAL IV SCH ×2 (03:40→16:30)
[2022-09-28 04:55] LABS: Basophils % 0.1 % (0.0-0.8); Eosinophils % 0.1 % (0.00-10.9); Hematocrit 28.7 VOL% (35.7-47.0); Hemoglobin 9.3 GM/DL (12.0-16.0); Immature Granulocytes % 1.1 %; Immature Granulocytes Absolute 0.17 #; Lymphocytes # 1.3 10*3/uL (1.4-4.0); Lymphocytes % 8.7 % (21.3-54.2); Mean Corpuscular HGB Conc 32.4 GM/DL (32-36); Mean Corpuscular Volume 92.3 FL (87-102); Monocytes # 1.5 10*3/uL (0.11-0.8); Monocytes % 10.1 % (1.7-12.7); Neutrophils % 79.9 % (38.7-73.9); Platelet Count 188 T/CUMM (130-400); Red Blood Count 3.11 MC/CUMM (3.8-5.5); Red Cell Distribution Width 15.7 % (9.3-17.3); White Blood Count 14.99 T/CUMM (4-12)
[2022-09-28 05:08] LABS: PT Patient Result 11.4 SECS (10.1-12.1)
[2022-09-28 05:23] LABS: Osmolality,Calculated 309.1 MOS/KG (273-304); Potassium 4.1 MMOL/L (3.5-5.1)
[2022-09-28] MEDS: DORNASE ALFA 2.5 MG/2.5 ML VIAL RESP TX SCH ×2 (06:58→19:36)
[2022-09-28] MEDS: ONDANSETRON 4 MG/2 ML VIAL IV PRN (08:27)
[2022-09-28] MEDS: NEBIVOLOL 10 MG TABLET PO SCH (08:41)
[2022-09-28] MEDS: busPIRone 10 MG TABLET PO SCH ×2 (08:41→21:42)
[2022-09-28] MEDS: PANTOPRAZOLE 40 MG VIAL IV SCH ×2 (08:41→21:40)
[2022-09-28] MEDS: MENTHOL/ZINC OXIDE OINT 71 GM JAR TOP SCH ×2 (08:41→21:42)
[2022-09-28] MEDS: FUROSEMIDE 20 MG/2 ML VIAL IV SCH (08:42)
[2022-09-28] MEDS ORDERED: MAGNESIUM SULF RIDER 2 GM/50 ML PREMIX IV ONE (09:30)
[2022-09-28] MEDS: MONTELUKAST 10 MG TABLET PO SCH (09:41)
[2022-09-28] MEDS ORDERED: LACTATED RINGERS 1,000 ML IV SCH (12:00)
[2022-09-28] MEDS ORDERED: KETAMINE 500 MG/10 ML VIAL ONE (13:38)
[2022-09-28] MEDS ORDERED: LIDOCAINE 2% 5 ML VIAL ONE (13:38)
[2022-09-28] MEDS ORDERED: GLYCOPYRROLATE 0.4 MG/2 ML VIAL ONE (13:38)
[2022-09-28] MEDS: MELATONIN 3 MG TABLET PO SCH (21:42)
[2022-09-28] MEDS: ESCITALOPRAM 10 MG TABLET PO SCH (21:42)
[2022-09-29] MEDS: ALBUTEROL/IPRATROPIUM 3 ML NEB RESP TX SCH ×4 (01:00→21:07)
[2022-09-29] MEDS: INSULIN LISPRO 100 UNIT/ML SUBCUT SCH ×4 (01:44→18:46)
[2022-09-29] MEDS: methylPREDNISolone SOD SUC 40 MG/1 ML VIAL IV SCH (03:55)
[2022-09-29] MEDS: MEROPENEM 500 MG in SODIUM CHLORIDE 0.9% 100 ML IV SCH ×4 (03:58→21:31)
[2022-09-29 04:51] LABS: Basophils % 0.1 % (0.0-0.8); Eosinophils % 0.1 % (0.00-10.9); Hemoglobin 8.8 GM/DL (12.0-16.0); Immature Granulocytes % 1.1 %; Immature Granulocytes Absolute 0.14 #; Lymphocytes # 1.6 10*3/uL (1.4-4.0); Mean Corpuscular HGB Conc 32.6 GM/DL (32-36); Mean Corpuscular Volume 90.9 FL (87-102); Mean Platelet Volume 11.4 FL (9.6-12.0); Monocytes % 7.7 % (1.7-12.7); Platelet Count 141 T/CUMM (130-400); Red Blood Count 2.97 MC/CUMM (3.8-5.5); Red Cell Distribution Width 15.4 % (9.3-17.3); White Blood Count 12.27 T/CUMM (4-12)
[2022-09-29 05:22] LABS: Calcium 8.4 MG/DL (8.5-10.1); Osmolality,Calculated 305.3 MOS/KG (273-304); Potassium 4.1 MMOL/L (3.5-5.1)
[2022-09-29] MEDS: DORNASE ALFA 2.5 MG/2.5 ML VIAL RESP TX SCH ×2 (07:13→21:07)
[2022-09-29] MEDS: ACETAMINOPHEN 325 MG/10.15 ML UDCUP PO PRN (08:41)
[2022-09-29] MEDS: busPIRone 10 MG TABLET PO SCH ×2 (08:41→21:22)
[2022-09-29] MEDS: MONTELUKAST 10 MG TABLET PO SCH (08:42)
[2022-09-29] MEDS: FUROSEMIDE 20 MG/2 ML VIAL IV SCH (08:42)
[2022-09-29] MEDS: NEBIVOLOL 10 MG TABLET PO SCH (08:42)
[2022-09-29] MEDS: MENTHOL/ZINC OXIDE OINT 71 GM JAR TOP SCH ×2 (08:43→21:24)
[2022-09-29] MEDS: PANTOPRAZOLE 40 MG VIAL IV SCH ×2 (08:43→21:23)
[2022-09-29] MEDS: ONDANSETRON 4 MG/2 ML VIAL IV PRN (19:02)
[2022-09-29] MEDS: MELATONIN 3 MG TABLET PO SCH (21:23)
[2022-09-29] MEDS: ESCITALOPRAM 10 MG TABLET PO SCH (21:23)
[2022-09-30] MEDS: INSULIN LISPRO 100 UNIT/ML SUBCUT SCH ×4 (00:45→17:18)
[2022-09-30] MEDS: ALBUTEROL/IPRATROPIUM 3 ML NEB RESP TX SCH ×4 (02:39→19:20)
[2022-09-30] MEDS: MEROPENEM 500 MG in SODIUM CHLORIDE 0.9% 100 ML IV SCH ×4 (02:58→21:34)
[2022-09-30 05:10] LABS: Basophils % 0.1 % (0.0-0.8); Eosinophils # 0.3 10*3/uL (0.0-0.87); Eosinophils % 1.7 % (0.00-10.9); Hematocrit 28.1 VOL% (35.7-47.0); Immature Granulocytes % 0.9 %; Immature Granulocytes Absolute 0.13 #; Lymphocytes # 1.8 10*3/uL (1.4-4.0); Lymphocytes % 11.8 % (21.3-54.2); Mean Corpuscular Volume 92.7 FL (87-102); Mean Platelet Volume 11.1 FL (9.6-12.0); Monocytes # 1.1 10*3/uL (0.11-0.8); Monocytes % 7.5 % (1.7-12.7); Platelet Count 154 T/CUMM (130-400); Red Blood Count 3.03 MC/CUMM (3.8-5.5); Red Cell Distribution Width 15.4 % (9.3-17.3); White Blood Count 14.93 T/CUMM (4-12)
[2022-09-30 05:26] LABS: Calcium 8.3 MG/DL (8.5-10.1); Osmolality,Calculated 304.1 MOS/KG (273-304); Potassium 3.6 MMOL/L (3.5-5.1)
[2022-09-30] MEDS: DORNASE ALFA 2.5 MG/2.5 ML VIAL RESP TX SCH ×2 (07:50→19:20)
[2022-09-30] MEDS: ACETAMINOPHEN 325 MG/10.15 ML UDCUP PO PRN (10:06)
[2022-09-30] MEDS: PANTOPRAZOLE 40 MG VIAL IV SCH ×2 (10:06→21:35)
[2022-09-30] MEDS: methylPREDNISolone SOD SUC 40 MG/1 ML VIAL IV SCH (10:06)
[2022-09-30] MEDS: MONTELUKAST 10 MG TABLET PO SCH (10:07)
[2022-09-30] MEDS: busPIRone 10 MG TABLET PO SCH ×2 (10:07→21:34)
[2022-09-30] MEDS: MENTHOL/ZINC OXIDE OINT 71 GM JAR TOP SCH ×2 (10:10→21:34)
[2022-09-30] MEDS: NEBIVOLOL 10 MG TABLET PO SCH (10:15)
[2022-09-30] MEDS ORDERED: SODIUM PHOSPHATE ENEMA 133 ML BOTTLE RECTAL ONE (11:00)
[2022-09-30] MEDS: FUROSEMIDE 20 MG/2 ML VIAL IV SCH (11:20)
[2022-09-30] MEDS ORDERED: MAGNESIUM SULF RIDER 2 GM/50 ML PREMIX IV ONE (12:15)
[2022-09-30] MEDS: MELATONIN 3 MG TABLET PO SCH (21:34)
[2022-09-30] MEDS: ESCITALOPRAM 10 MG TABLET PO SCH (21:34)
[2022-10-01] MEDS: ALBUTEROL/IPRATROPIUM 3 ML NEB RESP TX SCH ×4 (00:40→19:15)
[2022-10-01] MEDS: INSULIN LISPRO 100 UNIT/ML SUBCUT SCH ×4 (01:01→18:01)
[2022-10-01] MEDS: MEROPENEM 500 MG in SODIUM CHLORIDE 0.9% 100 ML IV SCH ×4 (02:20→21:20)
[2022-10-01] MEDS: ACETAMINOPHEN 325 MG/10.15 ML UDCUP PO PRN (02:20)
[2022-10-01 05:56] LABS: Basophils % 0.1 % (0.0-0.8); Eosinophils # 0.4 10*3/uL (0.0-0.87); Eosinophils % 2.6 % (0.00-10.9); Hematocrit 25.4 VOL% (35.7-47.0); Hemoglobin 8.2 GM/DL (12.0-16.0); Immature Granulocytes % 0.7 %; Lymphocytes # 1.2 10*3/uL (1.4-4.0); Lymphocytes % 8.7 % (21.3-54.2); Mean Corpuscular HGB Conc 32.3 GM/DL (32-36); Mean Corpuscular Volume 92.7 FL (87-102); Mean Platelet Volume 12.2 FL (9.6-12.0); Monocytes # 0.8 10*3/uL (0.11-0.8); Monocytes % 5.9 % (1.7-12.7); Platelet Count 121 T/CUMM (130-400); Red Blood Count 2.74 MC/CUMM (3.8-5.5); Red Cell Distribution Width 15.4 % (9.3-17.3); White Blood Count 14.18 T/CUMM (4-12)
[2022-10-01 06:25] LABS: Calcium 8.3 MG/DL (8.5-10.1); Osmolality,Calculated 302.7 MOS/KG (273-304); Potassium 4.1 MMOL/L (3.5-5.1)
[2022-10-01] MEDS: DORNASE ALFA 2.5 MG/2.5 ML VIAL RESP TX SCH ×2 (07:18→19:15)
[2022-10-01] MEDS: busPIRone 10 MG TABLET PO SCH ×2 (09:41→21:21)
[2022-10-01] MEDS: MONTELUKAST 10 MG TABLET PO SCH (09:41)
[2022-10-01] MEDS: MENTHOL/ZINC OXIDE OINT 71 GM JAR TOP SCH ×2 (09:42→21:22)
[2022-10-01] MEDS: PANTOPRAZOLE 40 MG VIAL IV SCH ×2 (09:42→21:21)
[2022-10-01] MEDS: methylPREDNISolone SOD SUC 40 MG/1 ML VIAL IV SCH (09:43)
[2022-10-01] MEDS: NEBIVOLOL 10 MG TABLET PO SCH (09:44)
[2022-10-01] MEDS ORDERED: ALUMINUM/MAGNES/SIMETH MAX STR 30 ML UDCUP PEG ONE (12:01)
[2022-10-01] MEDS ORDERED: MORPHINE 2 MG/1 ML SYRINGE IV ONE (12:02)
[2022-10-01] MEDS ORDERED: DOCUSATE SODIUM 100 MG/10 ML UDCUP PEG ONE (16:13)
[2022-10-01] MEDS ORDERED: BISACODYL 10 MG SUPP RECTAL ONE (16:13)
[2022-10-01] MEDS: POLYETHYLENE GLYCOL POWDER 17 GM PACK PEG SCH (17:43)
[2022-10-01] MEDS: MELATONIN 3 MG TABLET PO SCH (21:21)
[2022-10-01] MEDS: DOCUSATE SODIUM 100 MG/10 ML UDCUP PO SCH (21:21)
[2022-10-01] MEDS: ESCITALOPRAM 10 MG TABLET PO SCH (21:21)
[2022-10-01] MEDS: INSULIN GLARGINE 100 UNIT/ML SUBCUT SCH (21:21)
[2022-10-02] MEDS: ALBUTEROL/IPRATROPIUM 3 ML NEB RESP TX SCH ×4 (00:20→18:52)
[2022-10-02] MEDS: INSULIN LISPRO 100 UNIT/ML SUBCUT SCH ×4 (00:32→18:37)
[2022-10-02] MEDS: MEROPENEM 500 MG in SODIUM CHLORIDE 0.9% 100 ML IV SCH ×4 (03:05→20:52)
[2022-10-02 04:53] LABS: Basophils % 0.1 % (0.0-0.8); Eosinophils # 0.3 10*3/uL (0.0-0.87); Eosinophils % 2.2 % (0.00-10.9); Hematocrit 27.1 VOL% (35.7-47.0); Hemoglobin 8.5 GM/DL (12.0-16.0); Immature Granulocytes % 0.8 %; Immature Granulocytes Absolute 0.11 #; Lymphocytes # 0.8 10*3/uL (1.4-4.0); Lymphocytes % 6.3 % (21.3-54.2); Mean Corpuscular HGB Conc 31.4 GM/DL (32-36); Mean Corpuscular Volume 93.4 FL (87-102); Mean Platelet Volume 11.6 FL (9.6-12.0); Monocytes # 0.5 10*3/uL (0.11-0.8); Monocytes % 3.4 % (1.7-12.7); Neutrophils % 87.2 % (38.7-73.9); Platelet Count 142 T/CUMM (130-400); Red Cell Distribution Width 15.6 % (9.3-17.3); White Blood Count 13.34 T/CUMM (4-12)
[2022-10-02 05:12] LABS: Calcium 8.7 MG/DL (8.5-10.1); Osmolality,Calculated 294.6 MOS/KG (273-304); Potassium 4.2 MMOL/L (3.5-5.1)
[2022-10-02] MEDS: DORNASE ALFA 2.5 MG/2.5 ML VIAL RESP TX SCH ×2 (07:12→18:53)
[2022-10-02] MEDS: PANTOPRAZOLE 40 MG VIAL IV SCH ×2 (09:17→20:52)
[2022-10-02] MEDS: POLYETHYLENE GLYCOL POWDER 17 GM PACK PEG SCH (09:17)
[2022-10-02] MEDS: methylPREDNISolone SOD SUC 40 MG/1 ML VIAL IV SCH (09:17)
[2022-10-02] MEDS: DOCUSATE SODIUM 100 MG/10 ML UDCUP PO SCH ×2 (09:17→20:53)
[2022-10-02] MEDS: ACETAMINOPHEN 325 MG/10.15 ML UDCUP PO PRN ×2 (09:17→17:55)
[2022-10-02] MEDS: MONTELUKAST 10 MG TABLET PO SCH (09:19)
[2022-10-02] MEDS: MENTHOL/ZINC OXIDE OINT 71 GM JAR TOP SCH ×2 (09:19→21:06)
[2022-10-02] MEDS: busPIRone 10 MG TABLET PO SCH ×2 (09:19→20:54)
[2022-10-02] MEDS: NEBIVOLOL 10 MG TABLET PO SCH (09:24)
[2022-10-02] MEDS: ALUMINUM/MAGNES/SIMETH MAX STR 30 ML UDCUP PEG PRN (18:37)
[2022-10-02] MEDS: INSULIN GLARGINE 100 UNIT/ML SUBCUT SCH (20:53)
[2022-10-02] MEDS: MELATONIN 3 MG TABLET PO SCH (20:54)
[2022-10-02] MEDS: ESCITALOPRAM 10 MG TABLET PO SCH (20:54)
[2022-10-02] MEDS: MIRTAZAPINE 15 MG TABLET PO PRN (20:54)
[2022-10-03] MEDS: ALBUTEROL/IPRATROPIUM 3 ML NEB RESP TX SCH ×2 (00:50→06:50)
[2022-10-03] MEDS: INSULIN LISPRO 100 UNIT/ML SUBCUT SCH ×3 (00:57→11:29)
[2022-10-03] MEDS: MEROPENEM 500 MG in SODIUM CHLORIDE 0.9% 100 ML IV SCH ×2 (03:20→09:06)
[2022-10-03 06:00] LABS: Basophils % 0.1 % (0.0-0.8); Eosinophils # 0.4 10*3/uL (0.0-0.87); Eosinophils % 3.4 % (0.00-10.9); Hematocrit 27.4 VOL% (35.7-47.0); Hemoglobin 8.5 GM/DL (12.0-16.0); Immature Granulocytes % 0.8 %; Immature Granulocytes Absolute 0.09 #; Lymphocytes % 18.3 % (21.3-54.2); Mean Corpuscular Volume 94.2 FL (87-102); Mean Platelet Volume 11.4 FL (9.6-12.0); Monocytes # 0.7 10*3/uL (0.11-0.8); Monocytes % 6.4 % (1.7-12.7); Platelet Count 142 T/CUMM (130-400); Red Blood Count 2.91 MC/CUMM (3.8-5.5); Red Cell Distribution Width 15.6 % (9.3-17.3); White Blood Count 10.71 T/CUMM (4-12)
[2022-10-03 06:22] LABS: Osmolality,Calculated 297.4 MOS/KG (273-304); Potassium 4.8 MMOL/L (3.5-5.1)
[2022-10-03] MEDS: DORNASE ALFA 2.5 MG/2.5 ML VIAL RESP TX SCH (06:50)
[2022-10-03] MEDS ORDERED: ACETAMINOPHEN/CODEINE 120-12 MG/5 ML 12.5 ML UDCUP PEG PRN (09:00)
[2022-10-03] MEDS: DOCUSATE SODIUM 100 MG/10 ML UDCUP PO SCH (09:04)
[2022-10-03] MEDS: POLYETHYLENE GLYCOL POWDER 17 GM PACK PEG SCH (09:04)
[2022-10-03] MEDS: busPIRone 10 MG TABLET PO SCH (09:04)
[2022-10-03] MEDS: NEBIVOLOL 10 MG TABLET PO SCH (09:04)
[2022-10-03] MEDS: MONTELUKAST 10 MG TABLET PO SCH (09:04)
[2022-10-03] MEDS: ALUMINUM/MAGNES/SIMETH MAX STR 30 ML UDCUP PEG PRN (09:05)
[2022-10-03] MEDS: MENTHOL/ZINC OXIDE OINT 71 GM JAR TOP SCH (09:05)
[2022-10-03] MEDS: methylPREDNISolone SOD SUC 40 MG/1 ML VIAL IV SCH (09:05)
[2022-10-03] MEDS: PANTOPRAZOLE 40 MG VIAL IV SCH (09:10)
[2022-10-03 11:15] VITALS: BP 101/61
== END 2022-10-03 12:36 | disposition home or self-care (01) | DRG 177 ==
LOC: N.ED 01:20 → N.EDINP 04:46 → SUATTDRO 04:46 → N.TELES 06:08 → N.CC 09-25 10:18 → N.3E 09-27 02:17
PROVIDERS: ADMIT Internal Medicine; ATTEND Internal Medicine
PROC: EGDWPEG (ICD-10-PCS; 2022-09-28 11:05)